=== PATIENT | female | born 1945 | race Caucasian/White ===

== ENCOUNTER → 2018-01-07 14:28 | Outpatient (CLI) | payer MEDICARE, OTHER, SELFPAY ==
[2018-01-07 16:16] LABS: Albumin, Serum 3.6 g/dL (3.2-5.0); BUN 42 mg/dL (7-18); BUN/Creat Ratio 21.4 RATIO (10-20); Calcium,Total 9.7 mg/dL (8.5-10.1); Chloride 104 mmol/L (98-107); Creatinine, Serum 1.96 mg/dL (0.55-1.02); EST Glomerular Filtration Rate 27 mL/min (>60); Est Glom Filt Rate - Afr Amer 32 mL/min (>60); Glucose 94 mg/dL (74-106); Phosphorus 3.4 mg/dL (2.5-4.9); Potassium 3.5 mmol/L (3.5-5.1); Sodium Level 141 mmol/L (136-145)
== END ==
PROVIDERS: Family Provider Family Medicine; PCP Family Medicine; Visit Provider Internal Medicine Nephrology
DX: R79.89 Other specified abnormal findings of blood chemistry (principal); N18.3 Chronic kidney disease, stage 3 (moderate)
CPT/HCPCS: 36415; 80069

== ENCOUNTER → 2018-03-04 11:37 | Outpatient (CLI) | payer MEDICARE, OTHER, SELFPAY ==
[2018-03-04 13:24] LABS: Albumin, Serum 3.2 g/dL (3.2-5.0); BUN 36 mg/dL (7-18); BUN/Creat Ratio 17.1 RATIO (10-20); Calcium,Total 9.4 mg/dL (8.5-10.1); Chloride 110 mmol/L (98-107); EST Glomerular Filtration Rate 25 mL/min (>60); Est Glom Filt Rate - Afr Amer 30 mL/min (>60); Glucose 93 mg/dL (74-106); Phosphorus 3.7 mg/dL (2.5-4.9); Potassium 4.3 mmol/L (3.5-5.1); Sodium Level 146 mmol/L (136-145)
== END ==
PROVIDERS: Family Provider Family Medicine; PCP Family Medicine; Visit Provider Internal Medicine Nephrology
DX: N18.3 Chronic kidney disease, stage 3 (moderate) (principal)
CPT/HCPCS: 36415; 80069

== ENCOUNTER → 2018-06-10 14:44 | Outpatient (CLI) | payer MEDICARE, OTHER, SELFPAY ==
[2018-06-10 16:43] LABS: Absolute Lymphocyte Count 1.96 X10^3/ul (0.83-4.51); Absolute Neutrophil Count 3.3 X10^3/uL (2.0-7.7); Basophil# 0.04 X10^3/uL; Basophil% 0.7 % (0-1); Eosinophil# 0.23 X10^3/uL; Eosinophils% 3.8 % (0-5); Hematocrit 40.8 % (37-47); Hemoglobin 12.8 g/dl (12.0-15.0); Lymphocyte # 1.96 X10^3/ul (4.0); Lymphocyte % 32.6 % (19-41); Mean Corp Hgb Conc 31.4 g/gl (32-36); Mean Corpuscular Hgb 30.2 pg (27.0-32.0); Mean Corpuscular Volume 96.2 fL (81-99); Mean Platelet Vol. 11.2 fl (6.2-12.0); Monocyte# 0.45 X10^3/uL; Monocyte% 7.5 % (0-10); Neutrophil # 3.32 X10^3/uL (2.7-7.7); Neutrophil % 55.1 % (47-70); Platelet Count 193 K/mm3 (150-450); RBC Distribution Width CV 14.6 % (11.6-14.6); RBC Distribution Width SD 49.1 fl (35.1-43.9); Red Blood Count 4.24 M/mm3 (4.2-5.4)
[2018-06-10 16:44] LABS: POSITIVE COUNT NO; POSITIVE DIFFERENTIAL NO; POSITIVE MORPHOLOGY NO
[2018-06-10 16:59] LABS: ALB/GLOB Ratio 0.8 RATIO (0.9-2.4); AST(SGOT) 17 U/L (15-37); Alanine Aminotransfer ALT/SGPT 25 U/L (13-56); Albumin, Serum 3.3 g/dL (3.2-5.0); Alkaline Phosphatase 80 U/L (45-117); Anion Gap 10 (5-15); BUN 35 mg/dL (7-18); Bilirubin, Direct 0.11 mg/dL (0.00-0.30); Calcium,Total 9.4 mg/dL (8.5-10.1); Chloride 105 mmol/L (98-107); Creatinine, Serum 2.33 mg/dL (0.55-1.02); EST Glomerular Filtration Rate 22 mL/min (>60); Est Glom Filt Rate - Afr Amer 26 mL/min (>60); Globulin 4.2 g/dL (2.2-4.2); Glucose 97 mg/dL (74-106); Potassium 4.4 mmol/L (3.5-5.1); Protein, Total 7.5 g/dL (6.4-8.2); Sodium Level 141 mmol/L (136-145); Thyroid Stim Hormone (TSH) 6.93 uIU/mL (0.358-3.74)
== END ==
PROVIDERS: Family Provider Family Medicine; PCP Family Medicine; Visit Provider Internal Medicine Nephrology
DX: E03.4 Atrophy of thyroid (acquired) (principal)
CPT/HCPCS: 36415; 80053; 82248; 84443; 85025

== ENCOUNTER → 2018-09-16 11:41 | Outpatient (CLI) | payer MEDICARE, OTHER, SELFPAY ==
[2018-09-16 14:15] LABS: Albumin, Serum 3.3 g/dL (3.2-5.0); BUN 38 mg/dL (7-18); BUN/Creat Ratio 16.9 RATIO (10-20); Chloride 106 mmol/L (98-107); Creatinine, Serum 2.25 mg/dL (0.55-1.02); EST Glomerular Filtration Rate 23 mL/min (>60); Est Glom Filt Rate - Afr Amer 28 mL/min (>60); Glucose 95 mg/dL (74-106); Phosphorus 4.7 mg/dL (2.5-4.9); Potassium 3.7 mmol/L (3.5-5.1); Sodium Level 143 mmol/L (136-145)
== END ==
PROVIDERS: Family Provider Family Medicine; PCP Family Medicine; Visit Provider Internal Medicine Nephrology
DX: N18.3 Chronic kidney disease, stage 3 (moderate) (principal)
CPT/HCPCS: 36415; 80069

== ENCOUNTER → 2018-11-12 14:28 | Outpatient (CLI) | payer MEDICARE, OTHER, SELFPAY ==
[2018-11-12 17:28] LABS: Albumin, Serum 3.4 g/dL (3.2-5.0); BUN 29 mg/dL (7-18); BUN/Creat Ratio 13.4 RATIO (10-20); Calcium,Total 9.4 mg/dL (8.5-10.1); Chloride 103 mmol/L (98-107); Creatinine, Serum 2.17 mg/dL (0.55-1.02); EST Glomerular Filtration Rate 24 mL/min (>60); Est Glom Filt Rate - Afr Amer 29 mL/min (>60); Glucose 101 mg/dL (74-106); Phosphorus 3.9 mg/dL (2.5-4.9); Sodium Level 138 mmol/L (136-145)
== END ==
PROVIDERS: Family Provider Family Medicine; PCP Family Medicine; Visit Provider Internal Medicine Nephrology
DX: N18.3 Chronic kidney disease, stage 3 (moderate) (principal)
CPT/HCPCS: 36415; 80069

== ENCOUNTER → 2019-02-08 14:36 | Outpatient (CLI) | payer MEDICARE, OTHER, SELFPAY ==
[2019-02-08 16:17] LABS: Albumin, Serum 3.3 g/dL (3.2-5.0); BUN 29 mg/dL (7-18); BUN/Creat Ratio 12.6 RATIO (10-20); Calcium,Total 9.4 mg/dL (8.5-10.1); Chloride 105 mmol/L (98-107); EST Glomerular Filtration Rate 22 mL/min (>60); Est Glom Filt Rate - Afr Amer 27 mL/min (>60); Glucose 91 mg/dL (74-106); Phosphorus 3.5 mg/dL (2.5-4.9); Potassium 4.2 mmol/L (3.5-5.1); Sodium Level 139 mmol/L (136-145); Thyroid Stim Hormone (TSH) 0.38 uIU/mL (0.358-3.74)
== END ==
PROVIDERS: Family Provider Family Medicine; PCP Family Medicine; Visit Provider Internal Medicine Nephrology
DX: N18.3 Chronic kidney disease, stage 3 (moderate) (principal); E03.9 Hypothyroidism, unspecified
CPT/HCPCS: 36415; 80069; 84443

== ENCOUNTER 2019-08-07 11:30 | Inpatient (IN) | payer MEDICARE, OTHER, SELFPAY ==
[2019-08-07 11:31] VITALS: BP 107/43; PULSE 67; RESP 18; TEMP 36.4; O2SAT 98; BMI 32.3
--- NOTE | 2019-08-07 11:48 | EKG12_ITS ---
Test Reason : Blood Pressure : / mmHG Vent. Rate : 059 BPM Atrial Rate : 059 BPM P-R Int : 154 ms QRS Dur : 078 ms QT Int : 454 ms P-R-T Axes : 003 043 114 degrees QTc Int : [address] & T wave abnormality, consider lateral ischemia Abnormal ECG Confirmed by MIKE LING, SHIKHA ([id number]), communications editor VOLODYMYR VIZCARRA ([id number]) on 08/09/2019 1:48:01 PM Referred By: Soila Torres Confirmed By:SHIKHA MCKEON MD
--- NOTE | 2019-08-07 11:48 | CT_ITS ---
STUDY: CT BRAIN WITHOUT CONTRAST REASON FOR EXAM: Female, 74 years old. Weakness. RADIATION DOSAGE (If Supplied By Facility): CTDIvol = ( 44.99 ) mGy, DLP = ( 1490.98 ) mGycm TECHNIQUE: Transaxial CT imaging of the brain was performed without administration of intravenous contrast material. Individualized dose optimization techniques were used for this CT. COMPARISON: 10/14/2016. FINDINGS: Normal soft tissue structures. Normal calvarium. There is moderate cerebral atrophy with widening of the extra-axial spaces and ventricular dilatation worse than the previous examination. There are areas of decreased attenuation within the white matter tracts of the supratentorial brain, consistent with microvascular disease changes. Normal basal ganglia and thalami. Normal brainstem. Normal cerebellum. There is no intracranial hemorrhage. There are no findings of an acute ischemic infarction. Normal visualized paranasal sinuses. CT/Brain/Head without Contrast IMPRESSION: Chronic involutional changes of the brain. No acute intracranial process. Electronically Signed: Andrea Shea MD at 13:39 EST Tel , Service support ,
--- NOTE | 2019-08-07 11:49 | RAD_ITS ---
STUDY: X-RAY CHEST REASON FOR EXAM: Female, 74 years old. Weakness and confusion. TECHNIQUE: Single AP portable view of the chest. COMPARISON: 10/14/2016. FINDINGS: There are hypoventilatory changes. No focal infiltrate is seen. There is no demonstrated pleural abnormality. There is borderline cardiomegaly. Normal mediastinum and guerrero. Normal visualized pulmonary arteries. There is atherosclerotic tortuosity of the aortic arch and descending thoracic aorta. The bony structures are unchanged. There is no demonstrated abnormality of the visualized soft tissue structures of the upper abdomen. RAD/Chest 1 View (Portable) IMPRESSION: Hypoventilatory changes. No active pulmonary disease. Electronically Signed: Andrea Shea MD at 14:17 EST Tel , Service support ,
--- NOTE | 2019-08-07 11:50 | RAD_ITS ---
STUDY: X-RAY - RIGHT FEMUR REASON FOR STUDY: Female, 74 years old. Weakness and bilateral femoral pain. TECHNIQUE: AP and lateral view(s) of the femur. COMPARISON: None. FINDINGS: Normal visualized femur. Normal visualized soft tissue structure. Mild narrowing of hip joint. There are degenerative changes in the knee. RAD/Femur Min 2 Views IMPRESSION: No demonstrated acute osseous injury. Electronically Signed: Andrea Shea MD at 14:20 EST Tel , Service support ,
--- NOTE | 2019-08-07 11:50 | RAD_ITS ---
STUDY: X-RAY - LEFT FEMUR REASON FOR STUDY: Female, 74 years old. Weakness and bilateral femoral pain. TECHNIQUE: AP and lateral view(s) of the femur. COMPARISON: None. FINDINGS: The patient is status post hip pinning with long intramedullary aleksey extending to the distal femur. There is no demonstrated acute fracture. Normal visualized soft tissue structure. There is degenerative arthrosis of the left knee. RAD/Femur Min 2 Views IMPRESSION: Postoperative changes. No demonstrated acute osseous injury. Electronically Signed: Andrea Shea MD at 14:19 EST Tel , Service support ,
[2019-08-07] MEDS: fentaNYL 100 MCG/2 ML Ampul 50 MCG IV (12:04)
[2019-08-07 12:28] LABS: Absolute Lymphocyte Count 1.23 X10^3/uL (0.83-4.51); Absolute Neutrophil Count 6.8 X10^3/uL (2.0-7.7); Basophil# 0.03 X10^3/uL; Basophil% 0.3 % (0-1); Eosinophil# 0.03 X10^3/uL; Eosinophils% 0.3 % (0-5); Hematocrit 34.8 % (37-47); Hemoglobin 11.1 g/dL (12.0-15.0); Lymphocyte # 1.23 X10^3/ul (4.0); Mean Corp Hgb Conc 31.9 g/dL (32-36); Mean Corpuscular Hgb 30.5 pg (27.0-32.0); Mean Corpuscular Volume 95.6 fL (81-99); Mean Platelet Vol. 10.8 fl (6.2-12.0); Monocyte# 0.64 X10^3/uL; Monocyte% 7.3 % (0-10); NRBC Flagged by Analyzer 0 % (0-5); Neutrophil # 6.82 X10^3/uL (2.7-7.7); Neutrophil % 77.9 % (47-70); Platelet Count 164 K/mm3 (150-450); RBC Distribution Width CV 13.4 % (11.6-14.6); RBC Distribution Width SD 46.8 fl (35.1-43.9); Red Blood Count 3.64 M/mm3 (4.2-5.4); White Blood Count 8.8 K/mm3 (4.4-11.0)
[2019-08-07 12:44] LABS: ALB/GLOB Ratio 0.8 RATIO (0.9-2.4); AST(SGOT) 17 U/L (15-37); Alanine Aminotransfer ALT/SGPT 25 U/L (13-56); Albumin, Serum 3.1 g/dL (3.2-5.0); Alkaline Phosphatase 79 U/L (45-117); Anion Gap 6 (5-15); BUN 24 mg/dL (7-18); BUN/Creat Ratio 16.4 RATIO (10-20); CPK Total, Creatine Kinase 18 U/L (26-192); Chloride 115 mmol/L (98-107); Creatinine, Serum 1.46 mg/dL (0.55-1.02); EST Glomerular Filtration Rate 37 mL/min (>60); Est Glom Filt Rate - Afr Amer 45 mL/min (>60); Estimated Creatinine Clearance 28.39 ml/min; Glucose 109 mg/dL (74-106); Potassium 3.8 mmol/L (3.5-5.1); Protein, Total 7.1 g/dL (6.4-8.2); Sodium Level 144 mmol/L (136-145)
[2019-08-07 12:57] LABS: Mucous, Urine 0 SEEN /hpf (<or=2+); Squamous Epithelial Cells - UA 0 SEEN /hpf (5-10)
[2019-08-07 13:01] LABS: Glucose, Dipstick Normal (Normal); Ketone-Dipstick 50 mg/dl (Negative); Leukocyte Esterase-Dipstick 500 /ul (Negative); Nitrite-Dipstick Positive (Negative); Occult Blood-Urine 150 /ul (Negative); Protein-Dipstick 30 mg/dl (Negative); Urine Bilirubin Dipstick Negative (Negative); Urine Urobilinogen Normal (Normal)
[2019-08-07 13:05] LABS: Color, Urine Yellow (Yellow); Urine Clarity Cloudy (Clear)
[2019-08-07 13:07] LABS: Bacteria 4+ /hpf (None Seen); Red Blood Cells-Urine 0-5 SEEN /hpf (0-5); White Blood Cells 10-25 SEEN /hpf (0-5)
[2019-08-07] MEDS: Ceftriaxone 1 GM/50 ML BAG IV (14:29)
[2019-08-07 14:31] VITALS: BP 113/81; PULSE 66; RESP 14; TEMP 36.8; O2SAT 98
--- NOTE | 2019-08-07 14:32 | NURSING ---
Sent text at 1423 to Charge Ed that it is okay for patient to come up to floor.
--- NOTE | 2019-08-07 14:33 | HP.PCM_ITS ---
History of Present Illness Date of Admission: 08/07/19 Chief Complaint: Generalized weakness and malaise. The patient is a 74 year old F with a past medical history as listed which includes hypertension and dementia and hypothyroidism. She was admitted through the ED on 08/07/2019 with a complaint of generalized malaise. History was mainly taken from the as patient is confused from dementia. According to the , patient was just weaker than usual generally and also would not allow him to change her as she was in pain wherever he touched her. She had no assisted fever or chills but he stated that she had not been eating and drinking well for the past few days. She had had no vomiting or diarrhea. She was incontinent of urine and she had not complained of any burning sensation with urine. On admission in the ED, vitals were significant for blood pressure of 107/43 with temperature of 97.5 Fahrenheit and pulse rate of 67 with respiratory rate of 18. He was saturating at 98% on room air. CBC showed no leukocytosis with WBC of 8.8 and hemoglobin of 11.1. Platelets were 164. Chemistry was significant for creatinine of 1.46, with a baseline of around 1.7. UA was positive for UTI with 4+ bacteria. She has been admitted to be managed for UTI. [] Past Medical History Past Medical History (Chronic Problems): Chronic Problems Dementia (Chronic) Hypothyroid (Chronic) Hypertension (Chronic) Allergies Penicillins [PCN] Allergy (Verified 08/07/19 11:39) Unknown Home Medications: Ambulatory Orders Medication Instructions Recorded Amlodipine Besylate [Norvasc] 1 tab PO DAILY 10/14/16 Donepezil HCl [Aricept] 10 mg PO QHS 10/14/16 Levothyroxine [Synthroid] 100 mcg PO DAILY 10/14/16 Vit A/Vit C/Vit E/Zinc/Copper 1 each PO BID 10/14/16 [Preservision Areds Softgel] Aspirin [Aspirin, Baby] 81 mg PO DAILY@0800 08/07/19 Carvedilol [Coreg] 12.5 mg PO BID 08/07/19 [place] History: No pertinent CORN GROWER history Lives: Spouse/ Significant Other Smoking Status: Never smoker Alcohol: None Drugs: None - *Family History Maternal History Items: No pertinent history Review of Systems Constitutional: Reports: Anorexia, Malaise, Weakness, Fatigue. Denies: Chills, Fever Eyes: Denies: Blurred vision HEENT: Denies: Head Aches, Sinus Congestion, Sinus Drainage Cardiovascular: Denies: Chest Pain, Palpitations Respiratory: Denies: Cough, Shortness of Breath, Shortness of breath at rest, Sputum production Gastrointestinal: Denies: Abdominal Pain, Nausea, Vomiting Genitourinary: Reports: Incontinence. Denies: Dysuria Musculoskeletal: Denies: Joint Pain, Joint Tenderness Skin: Denies: Rash, Wounds Neurological: Denies: Numbness, Tingling, Focal weakness Psychiatric: Denies: Anxiety, Depression, Homicidal Ideations, Suicidal Ideations Hematologic/ Lymphatic: Denies: Easy Bruising, Easy Bleeding VTE Information - Inpt Only VTE Present on Admission: No VTE Pharm Prophylaxis ordered?: Yes - Physical Exam Vitals/I&O's: Vital Signs Temp Pulse Resp BP Pulse Ox 98.2 F 66 14 113/81 H 98 08/07/19 14:31 08/07/19 14:31 08/07/19 14:31 08/07/19 14:31 08/07/19 14:31 Oxygen Delivery Method Room Air Weight: 182 lb 8.684 oz Body Mass Index (BMI) 32.3 Intake and Output for Last 24 Hours 08/05/19 08/06/19 08/07/19 23:59 23:59 23:59 Intake Total 500 / 500 Balance 500 / 500 General: Alert, Cooperative, No apparent distress, Confused, Lethargic HEENT: Atraumatic, PERRLA, EOMI, Normocephalic Oral: Dry Mucosa Neck: Supple, No JVD, Negative Carotid Bruits Lungs: Clear to auscultation, Normal air movement, No rhonchi, No wheeze, No rales Cardiovascular: Regular rate, Regular Rhythm, Normal S1, Normal S2, No murmurs Abdomen: Bowel Sounds Present, Soft, Non Tender, Non-Distended, No Hepato- splenomegaly Extremities: No clubbing, No cyanosis, No edema, Capillary Refill Less than 3 Seconds Skin: No rashes, No breakdown Musculoskeletal: No Tenderness to Palpation of Joints or Extremities Lymphatic: No Cervical, Supraclavicular, or Inguinal Adenopathy Neurological: Cranial nerves II-XII grossly intact, Neuro grossly intact Psych/Mental Status: Flat Affect Laboratory Results 08/07/19 12:15: WBC 8.8, RBC 3.64 L, Hgb 11.1 L, Hct 34.8 L, MCV 95.6, MCH 30.5, MCHC 31.9 L, RDW Std Deviation 46.8 H, RDW Coeff of Barbara 13.4, Plt Count 164, MPV 10.8, Immature Gran % (Auto) 0.200, Neut % (Auto) 77.9 H, Lymph % (Auto) 14.0 L, [place] % (Auto) 7.3, Eos % (Auto) 0.3, Baso % (Auto) 0.3, Absolute Neuts (auto) 6.8, Absolute Lymphs (auto) 1.23, Nucleated RBC % 0 08/07/19 12:15: Sodium 144, Potassium 3.8, Chloride 115 H, Carbon Dioxide 23.0, Anion Gap 6, BUN 24 H, Creatinine 1.46 H, Estim Creat Clear Calc 28.39, Est GFR (MDRD) Af Amer 45 L, Est GFR (MDRD) Non-Af 37 L, BUN/Creatinine Ratio 16.4, Glucose 109 H, Calcium 9.0, Total Bilirubin 0.60, AST 17, ALT 25, Alkaline Phosphatase 79, Total Creatine Kinase 18 L, Troponin I < 0.015, Total Protein 7.1, Albumin 3.1 L, Globulin 4.0, Albumin/Globulin Ratio 0.8 L 08/07/19 12:15: Lactic Acid 1.0 08/07/19 12:15: Total Creatine Kinase Cancelled 08/07/19 12:50: Urine Color Yellow, Urine Clarity Cloudy, Urine pH 5.0, Ur Specific [place] 1.020, Urine Protein 30 H, Urine Glucose (UA) Normal, Urine Ketones 50 H, Urine Occult Blood 150 H, Urine Nitrite Positive H, Urine Bilirub in Negative, Urine Urobilinogen Normal, Ur Leukocyte Esterase 500 H, Urine RBC 0-5 SEEN, Urine WBC 10-25 SEEN, Ur Squamous Epith Cells 0 SEEN, Urine Bacteria 4+, Urine Mucus 0 SEEN Diagnostic Data Brain CT 08/07/19 11:48 IMPRESSION: Chronic involutional changes of the brain. No acute intracranial process. Electronically Signed: Andrea Shea MD at 13:39 EST Tel , Service support , Chest X-Ray 08/07/19 11:49 IMPRESSION: Hypoventilatory changes. No active pulmonary disease. Electronically Signed: Andrea Shea MD at 14:17 EST Tel , Service support , Femur X-Ray 08/07/19 11:50 IMPRESSION: No demonstrated acute osseous injury. Electronically Signed: Andrea Shea MD at 14:20 EST Tel , Service support , Assessment/Plan All Active Problems CKD (chronic kidney disease) stage 3, GFR 30-59 ml/min (Acute) Anemia (Acute) Intertrochanteric fracture of left hip (Acute) 74 y/o female admitted with a complaint of general weakness and fatigue, as well as anorexia 1. UTI * UA had 4+ bacteria, with 10-25 wbc and positive nitrites * admit to [facility] * CBC showed no leucocytosis * hydrate gently with IVF NS * get urine and blood cultures * given IV ceftriaxone in the ED; however, she has a listed allergy to penicillins- neither she nor can tell what happens to her when she takes penicillins * will give IV ciprofloxacin * 2. Debililty due to UTI and dementia * And is very weak. is her primary caregiver. * PT OT consult to assess if she would benefit from placement. * CT of the brain showed only chronic involutional changes and there was no acute intracranial process. * X-ray of the femur was negative for any fractures bilaterally. * Fall precautions. * 3. CKD stage III: Creatinine is 1.46 with a baseline of around 1.8. Will monitor. 4.Hypertension: On amlodipine and carvedilol. BP well controlled 5. Hypothyroidism: On Synthroid. Will check TSH. 6. Dementia: On donepezil DVT prophylaxis: lovenox, renally dosed CODE STATUS: Full code * Patient's counseled extensively about different types of CODE STATUS including full code, DNR CCA and DNR CCA. elects for patient to be full code. * Total [id number] time 17 minutes. Code Visit Inpatient E&M: 79760 Init Hosp L3 Procedures: 95883 Advncd Care Plan 30 Min
--- NOTE | 2019-08-07 14:59 | ED.VISSUMM ---
- ER Visit Summary Date of Service: 08/07/19 Chief Complaint: Weakness History of Present Illness: The patient is a [address] Angulo. The patient has a history of dementia and is a poor informant. All history is through her . He reports that the patient has been weak over the course the past 3 weeks. Typically she walks around with a walker. He reports that she is gotten weaker and he was using a wheelchair and helping her transfer. She has not walked for the past week. Reports that since yesterday he was not even able to get her out of bed because of her weakness. He reports patient was nauseous and vomited 3 weeks ago, but has not vomited since then. He reports that she has not fallen. He denies fever. Patient denies any chest pain, abdominal pain, dysuria, headache, or other complaints. Physical Examination: Vitals: Stable. Afebrile. General: Well-nourished and well-developed. Head: Normocephalic atraumatic. Neck: Supple, no lymphadenopathy. No JVD. Nontender. Cardiovascular: Regular rate and rhythm. 3 out of 6 systolic murmur. Respiratory: No respiratory distress. Clear to auscultation bilaterally. Abdominal: Soft, nontender, nondistended, normal bowel sounds. No guarding, rebound, or peritoneal signs. Back: Nontender. Extremities: Moderate tenderness palpation of the distal thigh bilaterally. There is no soft tissue swelling or contusion. Good range of motion with minimal pain, no edema. Skin: Normal color, no rash. Neurologic: Alert and oriented ?1. Cranial nerves II through XII are intact. Normal sensation. 4 out of 5 strength throughout Psych: Normal affect. Test Results: EKG is sinus bradycardia at a rate of [address] changes. She does have T wave inversions laterally. Troponin is negative. UA shows UTI. Lactic acid is 1.0. CPK is 18. LFTs are marked for an albumin of 2.1. Chem-7 shows a chloride 115, BUN 24, creatinine 1.46, glucose 109. BC shows an H&H of 11.1 and 34.8. Clinical Impression(s) from Imaging Studies Brain CT 08/07/19 11:48 IMPRESSION: Chronic involutional changes of the brain. No acute intracranial process. Electronically Signed: Andrea Shea MD at 13:39 EST Tel , Service support , Chest X-Ray 08/07/19 11:49 IMPRESSION: Hypoventilatory changes. No active pulmonary disease. Electronically Signed: Andrea Shea MD at 14:17 EST Tel , Service support , Femur X-Ray 08/07/19 11:50 IMPRESSION: No demonstrated acute osseous injury. Electronically Signed: Andrea Shea MD at 14:20 EST Tel , Service support , Femur X-Ray 08/07/19 11:50 IMPRESSION: Postoperative changes. No demonstrated acute osseous injury. Electronically Signed: Andrea Shea MD at 14:19 EST Tel , Service support , Emergency Department Course and Treatment: Patient had an IV placed. She was given dose of fentanyl IV. She was given Rocephin IV. She is resting comfortably. Treatment Plan: Patient was discussed with Dr. Torres. She will be admitted the hospital for further relation and treatment. Disposition: Admitted in improved condition. Impression: 1. UTI. 2. Generalized weakness. This note was generated with [employer] dictation software. It may contain incorrect words, spelling, and punctuation that were not noted in review of the chart prior to signing ED Disposition - Plan for ED Patient: Disposition: Acute Care [facility]
[2019-08-07] MEDS: 0.9% Normal Saline 1,000 ML 125 ML IV (15:00)
[2019-08-07 15:04] VITALS: BMI 30.8; BMI 30.9
[2019-08-07] MEDS: Ciprofloxacin 400 MG/200 ML BAG 200 MG IV (16:42)
[2019-08-07] MEDS: Multivitamin (Healthy Eyes) Capsule 1 CAP PO (16:43)
[2019-08-07 17:08] LABS: Thyroid Stim Hormone (TSH) 0.17 uIU/mL (0.358-3.74)
[2019-08-07 21:00] VITALS: BP 130/52; PULSE 70; RESP 16; TEMP 36.9; O2SAT 96
[2019-08-07] MEDS: Nystatin Powder 15gm Bottle 1 APPLIC TOPICAL (22:10)
[2019-08-07] MEDS: Carvedilol 12.5 MG Tablet PO (22:10)
[2019-08-07] MEDS: Donepezil HCl 10 MG Tablet PO (22:10)
[2019-08-08] MEDS: 0.9% Normal Saline 1,000 ML 125 ML IV (01:55)
[2019-08-08 03:00] VITALS: BP 112/50; PULSE 64; RESP 16; TEMP 37; O2SAT 97
[2019-08-08] MEDS: Nystatin Powder 15gm Bottle 1 APPLIC TOPICAL ×3 (06:01→22:08)
[2019-08-08] MEDS: Enoxaparin 30 MG/0.3 ML Syringe SC (06:01)
[2019-08-08] MEDS: Levothyroxine 100 MCG Tablet PO (06:01)
[2019-08-08 06:44] LABS: Absolute Lymphocyte Count 1.63 X10^3/uL (0.83-4.51); Absolute Neutrophil Count 5.8 X10^3/uL (2.0-7.7); Basophil# 0.01 X10^3/uL; Basophil% 0.1 % (0-1); Eosinophil# 0.01 X10^3/uL; Eosinophils% 0.1 % (0-5); Hemoglobin 9.4 g/dL (12.0-15.0); Lymphocyte # 1.63 X10^3/ul (4.0); Lymphocyte % 19.9 % (19-41); Mean Corp Hgb Conc 31.3 g/dL (32-36); Mean Corpuscular Hgb 30.3 pg (27.0-32.0); Mean Corpuscular Volume 96.8 fL (81-99); Mean Platelet Vol. 10.9 fl (6.2-12.0); Monocyte# 0.67 X10^3/uL; Monocyte% 8.2 % (0-10); NRBC Flagged by Analyzer 0 % (0-5); Neutrophil # 5.82 X10^3/uL (2.7-7.7); Neutrophil % 71.1 % (47-70); Platelet Count 144 K/mm3 (150-450); RBC Distribution Width CV 13.8 % (11.6-14.6); RBC Distribution Width SD 48.7 fl (35.1-43.9); White Blood Count 8.2 K/mm3 (4.4-11.0)
[2019-08-08 06:59] LABS: Anion Gap 6 (5-15); BUN 22 mg/dL (7-18); BUN/Creat Ratio 16.2 RATIO (10-20); Calcium,Total 8.1 mg/dL (8.5-10.1); Chloride 117 mmol/L (98-107); Creatinine, Serum 1.36 mg/dL (0.55-1.02); EST Glomerular Filtration Rate 41 mL/min (>60); Est Glom Filt Rate - Afr Amer 49 mL/min (>60); Estimated Creatinine Clearance 30.48 ml/min; Glucose 81 mg/dL (74-106); Potassium 3.5 mmol/L (3.5-5.1); Sodium Level 146 mmol/L (136-145)
--- NOTE | 2019-08-08 07:42 | PN_ITS ---
Reason for Visit: UTI Subjective: Patient was seen and examined. She denied any new complaints. No acute events overnight. She is alert oriented to self only. Objective: Physical exam: General: Alert, Cooperative, No apparent distress, Confused HEENT: Atraumatic, PERRLA, EOMI, Normocephalic Oral: Moist Mucosa Neck: Supple, No JVD, Negative Carotid Bruits Lungs: Clear to auscultation, Normal air movement, No rhonchi, No wheeze, No rales Cardiovascular: Regular rate, Regular Rhythm, Normal S1, Normal S2, No murmurs Abdomen: Bowel Sounds Present, Soft, Non Tender, Non-Distended, No Hepato- splenomegaly Extremities: No clubbing, No cyanosis, No edema, Capillary Refill Less than 3 Seconds Skin: No rashes, No breakdown Musculoskeletal: No Tenderness to Palpation of Joints or Extremities Lymphatic: No Cervical, Supraclavicular, or Inguinal Adenopathy Neurological: Cranial nerves II-XII grossly intact, Neuro grossly intact Psych/Mental Status: Flat Affect Vitals/I&O's: Vital Signs Temp Pulse Resp BP Pulse Ox 98.6 F 64 16 112/50 L 97 08/08/19 03:00 08/08/19 03:00 08/08/19 03:00 08/08/19 03:00 08/08/19 03:00 Oxygen Delivery Method Room Air Weight: 79 kg Body Mass Index (BMI) 30.8 Intake and Output for Last 24 Hours 08/06/19 08/07/19 08/08/19 23:59 23:59 23:59 Intake Total 1900.00 / 1900.00 170 / 170 Balance 190.00 / 1900.00 170 / 170 Laboratory Results 08/07/19 12:15: WBC 8.8, RBC 3.64 L, Hgb 11.1 L, Hct 34.8 L, MCV 95.6, MCH 30.5, MCHC 31.9 L, RDW Std Deviation 46.8 H, RDW Coeff of Barbara 13.4, Plt Count 164, MPV 10.8, Immature Gran % (Auto) 0.200, Neut % (Auto) 77.9 H, Lymph % (Auto) 14.0 L, [place] % (Auto) 7.3, Eos % (Auto) 0.3, Baso % (Auto) 0.3, Absolute Neuts (auto) 6.8, Absolute Lymphs (auto) 1.23, Nucleated RBC % 0 08/07/19 12:15: Sodium 144, Potassium 3.8, Chloride 115 H, Carbon Dioxide 23.0, Anion Gap 6, BUN 24 H, Creatinine 1.46 H, Estim Creat Clear Calc 28.39, Est GFR (MDRD) Af Amer 45 L, Est GFR (MDRD) Non-Af 37 L, BUN/Creatinine Ratio 16.4, Glucose 109 H, Calcium 9.0, Total Bilirubin 0.60, AST 17, ALT 25, Alkaline Phosphatase 79, Total Creatine Kinase 18 L, Troponin I < 0.015, Total Protein 7.1, Albumin 3.1 L, Globulin 4.0, Albumin/Globulin Ratio 0.8 L 08/07/19 12:15: Lactic Acid 1.0 08/07/19 12:15: Total Creatine Kinase Cancelled 08/07/19 12:15: TSH 0.17 L 08/07/19 12:50: Urine Color Yellow, Urine Clarity Cloudy, Urine pH 5.0, Ur Specific [place] 1.020, Urine Protein 30 H, Urine Glucose (UA) Normal, Urine Ketones 50 H, Urine Occult Blood 150 H, Urine Nitrite Positive H, Urine Bilirubin Negative, Urine Urobilinogen Normal, Ur Leukocyte Esterase 500 H, Urine RBC 0-5 SEEN, Urine WBC 10-25 SEEN, Ur Squamous Epith Cells 0 SEEN, Urine Bacteria 4+, Urine Mucus 0 SEEN 08/08/19 05:50: WBC 8.2, RBC 3.10 L, Hgb 9.4 L, Hct 30.0 L, MCV 96.8, MCH 30.3, MCHC 31.3 L, RDW Std Deviation 48.7 H, RDW Coeff of [place] 13.8, Plt Count 144 L, MPV 10.9, Immature Gran % (Auto) 0.600, Neut % (Auto) 71.1 H, Lymph % (Auto) 19.9, [place] % (Auto) 8.2, Eos % (Auto) 0.1, Baso % (Auto) 0.1, Absolute Neuts (auto) 5.8, Absolute Lymphs (auto) 1.63, Nucleated RBC % 0 08/08/19 05:50: Sodium 146 H, Potassium 3.5, Chloride 117 H, Carbon Dioxide 23.0, Anion Gap 6, BUN 22 H, Creatinine 1.36 H, Estim Creat Clear Calc 30.48, Est GFR (MDRD) Af Amer 49 L, Est GFR (MDRD) Non-Af 41 L, BUN/Creatinine Ratio 16.2, Glucose 81, Calcium 8.1 L Current Medications Acetaminophen (Tylenol) 650 mg PO Q6H PRN PRN PRN Reason: Pain Score 1-3/Temp > 100.7 F Amlodipine Besylate (Norvasc) 5 mg PO DAILY [facility] Aspirin (Aspirin, Baby) 81 mg PO DAILY@0800 [facility] Calamine/Phenol (Calmoseptine Ointment) 1 applic TOPICAL TID PRN; Protocol PRN Reason: rectal excoriation Carvedilol (Coreg) 12.5 mg PO BID [facility] Last Admin: 08/07/19 22:10 Dose: 12.5 mg Documented by: Donepezil HCl (Aricept) 10 mg PO QHS [facility] Last Admin: 08/07/19 22:10 Dose: 10 mg Documented by: Enoxaparin Sodium (Lovenox) 30 mg SC DAILY@0600 [facility] Last Admin: 08/08/19 06:01 Dose: 30 mg Documented by: Glucagon () 1 mg IM .X1 PRN PRN Reason: Hypoglycemia Ciprofloxacin (Cipro) 400 mg in 200 mls @ 200 mls/hr IV Q24 [facility] Last Infusion: 08/07/19 18:46 Dose: Infused Documented by: Dextrose (Dextrose 10%-Water) 250 mls @ 999 mls/hr IV .Q16M PRN; Protocol PRN Reason: HYPOGLYCEMIA Levothyroxine Sodium (Synthroid) 100 mcg PO DAILY@0600 [facility] Last Admin: 08/08/19 06:01 Dose: 100 mcg Documented by: Multivitamins/Minerals (Healthy Eyes) 1 capsule PO BIDCM [facility] Last Admin: 08/07/19 16:43 Dose: 1 capsule Documented by: Nystatin (Mycostatin Powder) 1 applic TOPICAL TID [facility]; Protocol Last Admin: 08/08/19 06:01 Dose: 1 applicatio Documented by: Ondansetron HCl (Zofran) 4 mg IV Q8H PRN PRN PRN Reason: NAUSEA/VOMITING Sodium Chloride () 10 - 40 ml IV UD PRN PRN Reason: SALINE FLUSH Medical Necessity - Tobacco Use Smoking Status: Never smoker Assessment/Plan All Active Problems CKD (chronic kidney disease) stage 3, GFR 30-59 ml/min (Acute) Anemia (Acute) Intertrochanteric fracture of left hip (Acute) 74 y/o female with past medical history of hypertension, dementia, hypothyroidism, cared for by the at home who was admitted with progressive weakness and fatigue 1. Acute UTI, stable vitals, no leukocytosis Urine cultures are pending, Reported allergy to penicillin; On IV Cipro Will continue same pending urine cultures 2. Debility contribute to acute UTI on progressive dementia Has been reportedly unable to care for patient underwriting operations manager is consulted for discharge planning 3. CKD stage III, stable, continue to monitor creatinine. 4. Hypertension, controlled, continue on amlodipine and carvedilol 5. Hypothyroidism, continue on Synthroid TSH is 0.17, will check FT3/FT4 6. Dementia, continue on donepezil 7. DVT prophylaxis - Lovenox [place] 8. CODE STATUS: Full code Code Visit Inpatient E&M: 50365 Subs Hosp L2
[2019-08-08 09:00] VITALS: BP 119/56; PULSE 67; RESP 16; TEMP 37; O2SAT 96
[2019-08-08] MEDS: Multivitamin (Healthy Eyes) Capsule 1 CAP PO ×2 (09:01→18:00)
[2019-08-08] MEDS: Aspirin 81 MG TAB.CHEW PO (09:01)
[2019-08-08] MEDS: Carvedilol 12.5 MG Tablet PO ×2 (09:01→22:07)
[2019-08-08] MEDS: amLODIPine 5 MG Tablet PO (09:02)
[2019-08-08] MEDS: Ciprofloxacin 400 MG/200 ML BAG 200 MG IV (09:02)
[2019-08-08 10:18] LABS: Free T3 1.2 pg/mL (2.18-3.98)
[2019-08-08 15:00] VITALS: BP 101/70; PULSE 58; RESP 16; TEMP 36.6; O2SAT 97
[2019-08-08 22:00] VITALS: BP 134/51; PULSE 63; RESP 18; TEMP 36.9; O2SAT 96
[2019-08-08] MEDS: Donepezil HCl 10 MG Tablet PO (22:06)
[2019-08-08] MEDS: Menthol/Lanolin/Calamine/Znox 113 GM Tube 1 APPLIC TOPICAL (22:07)
[2019-08-09 04:40] VITALS: BP 119/76; PULSE 63; RESP 18; TEMP 36.4; O2SAT 99
[2019-08-09 06:02] LABS: Absolute Lymphocyte Count 1.93 X10^3/uL (0.83-4.51); Absolute Neutrophil Count 3.2 X10^3/uL (2.0-7.7); Basophil# 0.05 X10^3/uL; Basophil% 0.8 % (0-1); Eosinophil# 0.11 X10^3/uL; Eosinophils% 1.9 % (0-5); Hematocrit 32.3 % (37-47); Lymphocyte # 1.93 X10^3/ul (4.0); Lymphocyte % 32.5 % (19-41); Mean Corpuscular Hgb 30.2 pg (27.0-32.0); Mean Corpuscular Volume 97.6 fL (81-99); Mean Platelet Vol. 11.1 fl (6.2-12.0); Monocyte# 0.58 X10^3/uL; Monocyte% 9.8 % (0-10); NRBC Flagged by Analyzer 0 % (0-5); Neutrophil # 3.24 X10^3/uL (2.7-7.7); Neutrophil % 54.5 % (47-70); Platelet Count 142 K/mm3 (150-450); RBC Distribution Width CV 13.5 % (11.6-14.6); RBC Distribution Width SD 48.1 fl (35.1-43.9); Red Blood Count 3.31 M/mm3 (4.2-5.4); White Blood Count 5.9 K/mm3 (4.4-11.0)
[2019-08-09] MEDS: Nystatin Powder 15gm Bottle 1 APPLIC TOPICAL ×3 (06:03→21:04)
[2019-08-09] MEDS: Enoxaparin 30 MG/0.3 ML Syringe SC (06:03)
[2019-08-09] MEDS: Levothyroxine 100 MCG Tablet PO (06:03)
[2019-08-09 06:16] LABS: ALB/GLOB Ratio 0.7 RATIO (0.9-2.4); AST(SGOT) 18 U/L (15-37); Alanine Aminotransfer ALT/SGPT 23 U/L (13-56); Albumin, Serum 2.6 g/dL (3.2-5.0); Alkaline Phosphatase 67 U/L (45-117); Anion Gap 7 (5-15); BUN 21 mg/dL (7-18); BUN/Creat Ratio 14.5 RATIO (10-20); Calcium,Total 8.6 mg/dL (8.5-10.1); Chloride 114 mmol/L (98-107); Creatinine, Serum 1.45 mg/dL (0.55-1.02); EST Glomerular Filtration Rate 38 mL/min (>60); Est Glom Filt Rate - Afr Amer 46 mL/min (>60); Estimated Creatinine Clearance 28.58 ml/min; Globulin 3.8 g/dL (2.2-4.2); Glucose 83 mg/dL (74-106); Potassium 3.4 mmol/L (3.5-5.1); Protein, Total 6.4 g/dL (6.4-8.2); Sodium Level 144 mmol/L (136-145)
[2019-08-09 10:21] VITALS: BP 117/89; PULSE 68; RESP 16; TEMP 36.7; O2SAT 100
[2019-08-09 10:24] VITALS: PULSE 80
--- NOTE | 2019-08-09 10:27 | PN_ITS ---
Reason for Visit: Follow-up on UTI. Subjective: Patient was seen and examined. No acute events overnight. Denies any new complaints. Review of systems is negative. Objective: Physical exam: General: Alert, Cooperative, No apparent distress, Confused, alert oriented to self only HEENT: Atraumatic, PERRLA, EOMI, Normocephalic Oral: Moist Mucosa Neck: Supple, No JVD, Negative Carotid Bruits Lungs: Clear to auscultation, Normal air movement, No rhonchi, No wheeze, No rales Cardiovascular: Regular rate, Regular Rhythm, Normal S1, Normal S2, No murmurs Abdomen: Bowel Sounds Present, Soft, Non Tender, Non-Distended, No Hepato- splenomegaly Extremities: No clubbing, No cyanosis, No edema, Capillary Refill Less than 3 Seconds Skin: No rashes, No breakdown Musculoskeletal: No Tenderness to Palpation of Joints or Extremities Lymphatic: No Cervical, Supraclavicular, or Inguinal Adenopathy Neurological: Cranial nerves II-XII grossly intact, Neuro grossly intact Psych/Mental Status: Flat Affect Vitals/I&O's: Vital Signs Temp Pulse Resp BP Pulse Ox 98.1 F 68 16 117/89 H 100 08/09/19 10:21 08/09/19 10:21 08/09/19 10:21 08/09/19 10:21 08/09/19 10:21 Oxygen Delivery Method Room Air Weight: 79 kg Body Mass Index (BMI) 30.8 Intake and Output for Last 24 Hours 08/07/19 08/08/19 08/09/19 23:59 23:59 23:59 Intake Total 1900.00 / 1900.00 1370 / 1470 200 / 200 Balance 1900.00 / 1900.00 1370 / 1470 200 / 200 Microbiology Past 72 Hours 08/07/19 13:35 Urine Catheter - Catheter Urine Culture - Preliminary Culture exhibits no growth. Laboratory Results 08/09/19 05:30: WBC 5.9, RBC 3.31 L, Hgb 10.0 L, Hct 32.3 L, MCV 97.6, MCH 30.2, MCHC 31.0 L, RDW Std Deviation 48.1 H, RDW Coeff of Barbara 13.5, Plt Count 142 L, MPV 11.1, Immature Gran % (Auto) 0.500, Neut % (Auto) 54.5, Lymph % (Auto) 32.5, [place] % (Auto) 9.8, Eos % (Auto) 1.9, Baso % (Auto) 0.8, Absolute Neuts (auto) 3.2, Absolute Lymphs (auto) 1.93, Nucleated RBC % 0 08/09/19 05:30: Sodium 144, Potassium 3.4 L, Chloride 114 H, Carbon Dioxide 23.0, Anion Gap 7, BUN 21 H, Creatinine 1.45 H, Estim Creat Clear Calc 28.58, Est GFR (MDRD) Af Amer 46 L, Est GFR (MDRD) Non-Af 38 L, BUN/Creatinine Ratio 14.5, Glucose 83, Calcium 8.6, Total Bilirubin 0.30, AST 18, ALT 23, Alkaline Phosphatase 67, Total Protein 6.4, Albumin 2.6 L, Globulin 3.8, Albumin/Globulin Ratio 0.7 L Current Medications Acetaminophen (Tylenol) 650 mg PO Q6H PRN PRN PRN Reason: Pain Score 1-3/Temp > 100.7 F Amlodipine Besylate (Norvasc) 5 mg PO DAILY [facility] Last Admin: 08/08/19 09:02 Dose: 5 mg Documented by: Aspirin (Aspirin, Baby) 81 mg PO DAILY@0800 [facility] Last Admin: 08/08/19 09:01 Dose: 81 mg Documented by: Calamine/Phenol (Calmoseptine Ointment) 1 applic TOPICAL TID PRN; Protocol PRN Reason: rectal excoriation Last Admin: 08/08/19 22:07 Dose: 1 applicatio Documented by: Carvedilol (Coreg) 12.5 mg PO BID [facility] Last Admin: 08/08/19 22:07 Dose: 12.5 mg Documented by: Donepezil HCl (Aricept) 10 mg PO QHS [facility] Last Admin: 08/08/19 22:06 Dose: 10 mg Documented by: Enoxaparin Sodium (Lovenox) 30 mg SC DAILY@0600 [facility] Last Admin: 08/09/19 06:03 Dose: 30 mg Documented by: Glucagon () 1 mg IM .X1 PRN PRN Reason: Hypoglycemia Ciprofloxacin (Cipro) 400 mg in 200 mls @ 200 mls/hr IV Q24 [facility] Last Infusion: 12/22/19 10:02 Dose: Infused Documented by: Dextrose (Dextrose 10%-Water) 250 mls @ 999 mls/hr IV .Q16M PRN; Protocol PRN Reason: HYPOGLYCEMIA Levothyroxine Sodium (Synthroid) 100 mcg PO DAILY@0600 [facility] Last Admin: 08/09/19 06:03 Dose: 100 mcg Documented by: Multivitamins/Minerals (Healthy Eyes) 1 capsule PO BIDCM [facility] Last Admin: 08/08/19 18:00 Dose: 1 capsule Documented by: Nystatin (Mycostatin Powder) 1 applic TOPICAL TID [facility]; Protocol Last Admin: 08/09/19 06:03 Dose: 1 applicatio Documented by: Ondansetron HCl (Zofran) 4 mg IV Q8H PRN PRN PRN Reason: NAUSEA/VOMITING Sodium Chloride () 10 - 40 ml IV UD PRN PRN Reason: SALINE FLUSH STROKE Vital Signs/Narrative: Vital Signs Temp Pulse Resp BP Pulse Ox 08/09/19 10:21 98.1 F 68 16 117/89 H 100 Medical Necessity - Tobacco Use Smoking Status: Never smoker Assessment/Plan All Active Problems CKD (chronic kidney disease) stage 3, GFR 30-59 ml/min (Acute) Anemia (Acute) Intertrochanteric fracture of left hip (Acute) 74 y/o female with past medical history of hypertension, dementia, hypothyroidism, cared for by the at home who was admitted with progressive weakness and fatigue 1. Acute UTI, stable vitals, no leukocytosis Urine cultures showed no growth Reported allergy to penicillin; On IV Cipro(day 3) Will aim to complete 5 days of antibiotics for acute uncomplicated UTI 2. Debility contribute to acute UTI on progressive dementia reportedly unable to care for patient Discharge planning ongoing 3. Hypokalemia, K 3.4, replaced, recheck in am 4. CKD stage III, stable, continue to monitor creatinine. 5. Hypertension, controlled, continue on amlodipine and carvedilol 6. Hypothyroidism, continue on Synthroid TSH is 0.17, FT4 elevated Will decrease Synthroid dose to 75mcg daily, will need repeat TSH in 6-8 weeks 7. Dementia, continue on donepezil 8. DVT prophylaxis - Lovenox SC 9. CODE STATUS: Full code Code Visit Inpatient E&M: 84199 Subs Hosp L2
--- NOTE | 2019-08-09 10:35 | CASEMGMT ---
Patient has dementia, called placed to to complete RN CM assessment. RN CM introduced self and role at [facility]. willing to participate in assessment and is able to answer all questions appropriately. Care providers, pharmacy, and demographics verified. wishes for patient to discharge home with possible HHC. states he has no further needs or concerns at this time. CM to follow for discharge planning needs that may arise. 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 Patient is 1 assist for ADLs. Transportation: DME/HHC: Patient has shower chair, raised toilet, cane, walker, wheelchair, grab bars at home. Patient has been to rehab unit in the past. Patient has had [facility] HHC in the past. is requesting HHC at discharge, RN CM updated that list will be provided and placed in patient's folder in room for him to review. RN CM to assist with HHC setup after list reviewed. Disposition Plan: Patient to discharge home with HHC, family support, and follow-up plans in place. Acacia MONROY, RN, CM
[2019-08-09] MEDS: Multivitamin (Healthy Eyes) Capsule 1 CAP PO ×2 (10:37→18:18)
[2019-08-09] MEDS: Aspirin 81 MG TAB.CHEW PO (10:37)
[2019-08-09] MEDS: amLODIPine 5 MG Tablet PO (10:37)
[2019-08-09] MEDS: Carvedilol 12.5 MG Tablet PO ×2 (10:37→21:04)
[2019-08-09] MEDS: Ciprofloxacin 250 MG Tablet PO (12:06)
[2019-08-09 14:34] VITALS: BP 113/60; PULSE 68; RESP 16; TEMP 36.7; O2SAT 96
--- NOTE | 2019-08-09 14:41 | CASEMGMT ---
RADHA AMBROCIO in to talk with in patient's room. Discussed HHC with and he would like [facility] HHC when patient goes home. mentioned addition therapy at rehab or TCU prior to going home. RADHA AMBROCIO updated and review therapy notes to determine if patient will require SNF at discharge. would like patient to go home if she is able to assist with transfer. RADHA AMBROCIO requested that come in the morning and see patient work with therapy. RADHA AMBROCIO updated SW regarding potential SNF referral.
--- NOTE | 2019-08-09 14:43 | CASEMGMT ---
Addendum entered by Acacia Marcelo 08/09/19 14:59: INDIA received call from Corrie in TCU stating the other patient will be doing peer to peer but is not sure when the peer to peer will be scheduled. Corrie states if peer to peer gets denied, then pt is able to have bed on TCU. RADHA AMBROCIO updated this worker that pt's will be coming in tomorrow morning at 10:00am to watch PT/OT work with pt and determine if pt's is able to take pt home or not. INDIA and RADHA AMBROCIO to continue to follow. Original Note: Social Work Note Pt's may now be thinking SNF for pt and asked about TCU at [facility]. INDIA placed a call to Corrie in TCU. Corrie states that if a different pt gets denied by insurance for TCU then she would have a bed available for pt but if different pt gets approved and comes to TCU then all beds are taken. INDIA provided referral for TCU in the event a bed becomes available. INDIA and RADHA AMBROCIO to follow up with pt's tomorrow to confirm discharge plans. Acacia Marcelo VULNERABILITY RESEARCHER, DATA MODELER
[2019-08-09 20:58] VITALS: BP 138/74; PULSE 68; RESP 18; TEMP 36.7; O2SAT 98
[2019-08-09] MEDS: Donepezil HCl 10 MG Tablet PO (21:04)
[2019-08-10 03:04] VITALS: BP 108/53; PULSE 67; RESP 16; TEMP 36.4; O2SAT 96
[2019-08-10] MEDS: Nystatin Powder 15gm Bottle 1 APPLIC TOPICAL ×2 (05:33→13:16)
[2019-08-10] MEDS: Enoxaparin 30 MG/0.3 ML Syringe SC (05:34)
[2019-08-10] MEDS: Menthol/Lanolin/Calamine/Znox 113 GM Tube 1 APPLIC TOPICAL (05:34)
[2019-08-10] MEDS: Levothyroxine 100 MCG Tablet 75 MCG PO (05:35)
[2019-08-10] MEDS: Ciprofloxacin 250 MG Tablet PO (05:35)
[2019-08-10 06:47] LABS: ALB/GLOB Ratio 0.7 RATIO (0.9-2.4); AST(SGOT) 15 U/L (15-37); Alanine Aminotransfer ALT/SGPT 20 U/L (13-56); Albumin, Serum 2.5 g/dL (3.2-5.0); Alkaline Phosphatase 67 U/L (45-117); Anion Gap 5 (5-15); BUN 28 mg/dL (7-18); BUN/Creat Ratio 17.2 RATIO (10-20); Calcium,Total 8.9 mg/dL (8.5-10.1); Chloride 116 mmol/L (98-107); Creatinine, Serum 1.63 mg/dL (0.55-1.02); EST Glomerular Filtration Rate 33 mL/min (>60); Est Glom Filt Rate - Afr Amer 40 mL/min (>60); Estimated Creatinine Clearance 25.43 ml/min; Globulin 3.7 g/dL (2.2-4.2); Glucose 78 mg/dL (74-106); Potassium 4.4 mmol/L (3.5-5.1); Protein, Total 6.2 g/dL (6.4-8.2); Sodium Level 144 mmol/L (136-145)
[2019-08-10 09:52] VITALS: BP 129/48; PULSE 60; RESP 16; TEMP 37.1; O2SAT 97
[2019-08-10 09:54] VITALS: PULSE 60
[2019-08-10] MEDS: Aspirin 81 MG TAB.CHEW PO (10:01)
[2019-08-10] MEDS: Multivitamin (Healthy Eyes) Capsule 1 CAP PO (10:01)
[2019-08-10] MEDS: Carvedilol 12.5 MG Tablet PO (10:01)
[2019-08-10] MEDS: amLODIPine 5 MG Tablet PO (10:02)
--- NOTE | 2019-08-10 11:57 | CASEMGMT ---
Social Work Note INDIA received call from Lise with TCU stating pt is able to admit to TCU today. INDIA met with pt and pt's Shiva present in room. INDIA introduced self and role at [facility]. Pt does have history of dementia, is only alert and orientated x1. Pt's agreeable to TCU at discharge. INDIA updated Shiva that medically pt is ready for discharge and will be discharged to TCU today. Physician updated. Plan: TCU today Acacia Marcelo MSW, MEDICAL ASSOCIATE
--- NOTE | 2019-08-10 12:00 | PCM.TXEXTCAR ---
- Diet 08/07/19 15:39 Diet: Cardiac/Low Cholesterol Food consistency:: Regular Liquid Consistency:: Regular/Thin Type of Dietary Supplement:: [place] Breakfast Is pt able to select menu?: No Diet Comments: SEND YOGURT, ENSURE PUDDING OR APPLESAUCE ON EACH TRAY-SET UP - Routine Orders/Code Status Routine Lab Work: CBC - within 3 days, BMP - within 3 days - Therapies Weight Bearing: Weight bearing as tolerated Physical Therapy: Eval and Treat Occupational Therapy: Eval and Treat - Allergies/Procedures Done in Hospital Allergies/Adverse Reactions: Allergies Penicillins [PCN] Allergy (Verified 08/07/19 11:39) Unknown Procedures: None - Type of Care/Length of Stay Estimated LOS: Convalescent Care Less Than 30 days Type of Care Needed: Skilled Rehab Potential: Fair Prognosis: Fair - Additional Orders/Day of Discharge Additional Orders: Patient will complete 5 more doses of oral cipro. Day of Discharge: 08/10/19 - Dietary and Speech Recommendations Dietitian Recommendations/Changes: Continue cardiac diet with carnation instant breakfast at meals as ordered. - Follow Up Care Primary Care Physician: Kirit Padgett MD [Primary Care Provider] - Please follow up with your Primary Care Physician in: within 1-2 weeks of discharge
--- NOTE | 2019-08-10 12:05 | PCM.DC.SUM ---
Discharge Date and Diagnosis - Problem List Patient Problems: Active and Suspected Problems Debility (Acute) Generalized weakness (Acute) Urinary tract infection (Acute) Date of Admission: 08/07/19 Date of Discharge: 08/10/19 - Primary Discharge Diagnosis Acute metabolic encephalopathy, present on admission Acute UTI - Secondary Discharge Diagnosis Chronic Problems Dementia (Chronic) Hypothyroid (Chronic) Hypertension (Chronic) Hospital Course and Treatment Imaging Results: Clinical Impression(s) from Imaging Studies Brain CT 08/07/19 11:48 IMPRESSION: Chronic involutional changes of the brain. No acute intracranial process. Electronically Signed: Andrea Shea MD at 13:39 EST Tel , Service support , Chest X-Ray 08/07/19 11:49 IMPRESSION: Hypoventilatory changes. No active pulmonary disease. Electronically Signed: Andrea Shea MD at 14:17 EST Tel , Service support , Femur X-Ray 08/07/19 11:50 IMPRESSION: No demonstrated acute osseous injury. Electronically Signed: Andrea Shea MD at 14:20 EST Tel , Service support , Femur X-Ray 08/07/19 11:50 IMPRESSION: Postoperative changes. No demonstrated acute osseous injury. Electronically Signed: Andrea Shea MD at 14:19 EST Tel , Service support , None Operations: None, - - 10/15 left hip cephalomedullary nail Procedures: None Summary of Care Provided: 74 y/o female with past medical history of hypertension, dementia, hypothyroidism, cared for by her at home who was admitted with progressive weakness and fatigue . She was managed on Acute UTI. Urine cultures showed no growth. Patient was managed on IV Cipro and discharged on po cipro. Her hypokalemia was replaced. Her TSH was elevated, her synthroid was adjusted. Patient was seen by PT/OT and skilled for discharge to long-term facility. Her who is her primary caregiver could not take care of her. Patient Problems: Active and Suspected Problems Debility (Acute) Generalized weakness (Acute) Urinary tract infection (Acute) Subjective: On the day of discharge, patient was seen and examined. She denied any new complains. Objective: Physical exam: General: Alert, Cooperative, No apparent distress, Confused, alert oriented to self only HEENT: Atraumatic, PERRLA, EOMI, Normocephalic Oral: Moist Mucosa Neck: Supple, No JVD, Negative Carotid Bruits Lungs: Clear to auscultation, Normal air movement, No rhonchi, No wheeze, No rales Cardiovascular: Regular rate, Regular Rhythm, Normal S1, Normal S2, No murmurs Abdomen: Bowel Sounds Present, Soft, Non Tender, Non-Distended, No Hepato-splenomegaly Extremities: No clubbing, No cyanosis, No edema, Capillary Refill Less than 3 Seconds Skin: No rashes, No breakdown Musculoskeletal: No Tenderness to Palpation of Joints or Extremities Lymphatic: No Cervical, Supraclavicular, or Inguinal Adenopathy Neurological: Cranial nerves II-XII grossly intact, Neuro grossly intact Psych/Mental Status: Flat Affect - Physical Exam Vitals/I&O's: Vital Signs Temp Pulse Resp BP Pulse Ox 98.8 F 60 16 129/48 H 97 08/10/19 09:52 08/10/19 09:54 08/10/19 09:52 08/10/19 09:52 08/10/19 09:52 Oxygen Delivery Method Room Air Weight: 79 kg Body Mass Index (BMI) 30.8 Intake and Output for Last 24 Hours 08/08/19 08/09/19 08/10/19 23:59 23:59 23:59 Intake Total 1370 / 1470 200 / 200 100 / 100 Balance 1370 / 1470 200 / 200 100 / 100 Microbiology Past 72 Hours 08/07/19 13:35 Urine Catheter - Catheter Urine Culture - Final Culture exhibits no growth. Laboratory Results 08/10/19 05:46: Sodium 144, Potassium 4.4, Chloride 116 H, Carbon Dioxide 23.0, Anion Gap 5, BUN 28 H, Creatinine 1.63 H, Estim Creat Clear Calc 25.43, Est GFR (MDRD) Af Amer 40 L, Est GFR (MDRD) Non-Af 33 L, BUN/Creatinine Ratio 17.2, Glucose 78, Calcium 8.9, Total Bilirubin 0.20, AST 15, ALT 20, Alkaline Phosphatase 67, Total Protein 6.2 L, Albumin 2.5 L, Globulin 3.7, Albumin/Globulin Ratio 0.7 L Current Medications Acetaminophen (Tylenol) 650 mg PO Q6H PRN PRN PRN Reason: Pain Score 1-3/Temp > 100.7 F Amlodipine Besylate (Norvasc) 5 mg PO DAILY [facility] Last Admin: 08/10/19 10:02 Dose: 5 mg Documented by: Aspirin (Aspirin, Baby) 81 mg PO DAILY@0800 [facility] Last Admin: 08/10/19 10:01 Dose: 81 mg Documented by: Calamine/Phenol (Calmoseptine Ointment) 1 applic TOPICAL TID PRN; Protocol PRN Reason: rectal excoriation Last Admin: 08/10/19 05:34 Dose: 1 applicatio Documented by: Carvedilol (Coreg) 12.5 mg PO BID [facility] Last Admin: 08/10/19 10:01 Dose: 12.5 mg Documented by: Ciprofloxacin HCl (Cipro) 250 mg PO Q18H [facility] Last Admin: 08/10/19 05:35 Dose: 250 mg Documented by: Donepezil HCl (Aricept) 10 mg PO QHS [facility] Last Admin: 08/09/19 21:04 Dose: 10 mg Documented by: Enoxaparin Sodium (Lovenox) 30 mg SC DAILY@0600 [facility] Last Admin: 08/10/19 05:34 Dose: 30 mg Documented by: Glucagon () 1 mg IM .X1 PRN PRN Reason: Hypoglycemia Dextrose (Dextrose 10%-Water) 250 mls @ 999 mls/hr IV .Q16M PRN; Protocol PRN Reason: HYPOGLYCEMIA Levothyroxine Sodium (Synthroid) 75 mcg PO DAILY@0600 [facility] Last Admin: 08/10/19 05:35 Dose: 75 mcg Documented by: Multivitamins/Minerals (Healthy Eyes) 1 capsule PO BIDCM [facility] Last Admin: 08/10/19 10:01 Dose: 1 capsule Documented by: Nystatin (Mycostatin Powder) 1 applic TOPICAL TID [facility]; Protocol Last Admin: 08/10/19 05:33 Dose: 1 applicatio Documented by: Ondansetron HCl (Zofran) 4 mg IV Q8H PRN PRN PRN Reason: NAUSEA/VOMITING Sodium Chloride () 10 - 40 ml IV UD PRN PRN Reason: SALINE FLUSH Discharge Diet: Low fat/ Low Cholesterol, 2000 mg Sodium Diet Home Medications: Medications to take at Discharge Amlodipine Besylate [Norvasc] 1 tab PO DAILY 10/14/16 Donepezil HCl [Aricept] 10 mg PO QHS 10/14/16 Vit A/Vit C/Vit E/Zinc/Copper [Preservision Areds Softgel] 1 each PO BID 10/14/16 Aspirin [Aspirin, Baby] 81 mg PO DAILY@0800 08/07/19 Carvedilol [Coreg] 12.5 mg PO BID 08/07/19 Acetaminophen [Tylenol Tablet] 650 mg PO Q6H PRN PRN tab 08/10/19 Ciprofloxacin [Cipro] 250 mg PO Q18H 08/10/19 Levothyroxine [Synthroid] 75 mcg PO DAILY@0600 08/10/19 Primary Care Physician: Kirit Padgett MD [Primary Care Provider] - Please follow up with your Primary Care Physician in: within 1-2 weeks of discharge Disposition: [facility] facility Minutes spent on discharge:: 40 Patient Condition:: Stable Medical Necessity - Tobacco Use Smoking Status: Never smoker Tobacco Use: Non-smoker Meaningful Use Info Meaningful Use Diagnoses (Choose all that apply): None applicable Code Visit Inpatient E&M: 85620 Subs Hosp L2
--- NOTE | 2019-08-10 13:24 | NURSING ---
Report called to Curtis GARCIA.
[2019-08-10 13:28] VITALS: BP 100/44; PULSE 66; RESP 18; TEMP 36.6; O2SAT 99
== END 2019-08-10 14:40 | disposition skilled nursing facility (03) | DRG 689 ==
LOC: ED 12:20 → MS3 14:19
PROVIDERS: Admitting Provider Student in an Organized Health Care Education/Training Program; Emergency Provider Emergency Medicine; Family Provider Family Medicine; PCP Family Medicine; Referring Provider Student in an Organized Health Care Education/Training Program; Visit Provider Internal Medicine
DX: N39.0 Urinary tract infection, site not specified (principal); G93.41 Metabolic encephalopathy; N18.3 Chronic kidney disease, stage 3 (moderate); E03.9 Hypothyroidism, unspecified; F03.90 Unspecified dementia, unspecified severity, without behavioral disturbance, psychotic disturbance, mood disturbance, and anxiety; I12.9 Hypertensive chronic kidney disease with stage 1 through stage 4 chronic kidney disease, or unspecified chronic kidney disease; E87.6 Hypokalemia
CPT/HCPCS: 36415; 70450; 71045; 73552; 80048; 80053; 81001; 82550; 83605; 84439; 84443; 84481; 84484; 85025; 87086; 93005; 97116; 97162; 97165; 97530; 99285; J7030; P9612; A4216; J0744

== ENCOUNTER 2019-08-10 15:12 | Inpatient (IN) | payer MEDICARE, OTHER, SELFPAY ==
[2019-08-07 15:04] VITALS: BMI 30.8
[2019-08-10 15:16] VITALS: BP 114/44; PULSE 63; RESP 18; TEMP 36.6; O2SAT 99
[2019-08-10 15:19] VITALS: BMI 30.6
[2019-08-10 15:25] VITALS: BMI 30.6
--- NOTE | 2019-08-10 15:30 | NURSING ---
Addendum entered by Jenifer Ortiz 08/10/19 17:33: in room helping feed patient Original Note: pt admitted to TCU Rm 01 from [facility] around 1500 via bed, pt incontinent and confused, family at bedside, pleasant and cooperate, vitals and assessment obtained, pt educated partition notcher light will need to be reminded
[2019-08-10 16:00] VITALS: BP 114/44; PULSE 63; RESP 18; TEMP 36.6; O2SAT 99
--- NOTE | 2019-08-10 16:32 | HP.PCM_ITS ---
Problem List (1) Debility Status: Acute (2) Generalized weakness Status: Acute (3) Urinary tract infection Status: Acute (4) Alzheimer disease Status: Chronic (5) Macular degeneration Status: Chronic (6) Hypothyroid Status: Chronic Qualifiers: (7) Hypertension Status: Chronic Qualifiers: History of Present Illness Date of Admission: 08/10/19 Chief Complaint: Here for rehabilitation, strengthening, prior to disposition determination. The patient is a 74 year old Female with below past medical history presented to [facility] Emergency Department 08/07/2019 with weakness. 08/07/2019 CT brain chronic involutional changes of brain. 08/07/2019 Chest X-ray negative. 08/07/2019 X-ray right femur negative. 08/07/2019 EKG sinus bradycardia, ST&T wave abnormality, consider lateral ischemia. Poor historian due to Alzheimer's Disease, history per . Weak x 3 weeks, baseline walks with walker. Weaker, now uses wheelchair, no walking for 1 week. Needs 's help to transfer. Nausea/vomiting 3 weeks prior, but resolved. Troponin negative, UA consistent with urinary tract infection, lactic acid 1.0. CPK 18, Albumin 2.1, BUN 24, Cr 1.46, Glucose 109. Hemoglobin 11.1, Hematocrit 34.8. IV Rocephin, IV Fentanyl given. 08/07/2019 Admit to Hospital. Urine cultures, blood cultures sent. Cipro IV, IV fluids for uncomplicated urinary tract infection. PT/OT consulted. unable to care for patient at home. 08/08/2019 Urine culture pending. TSH suppressed, Check T3, Free T4. 08/09/2019 Urine culture negative. 5 days of antibiotics for uncomplicated UTI. Replete potassium. 08/10/2019 Admit to TCU with debility, here for rehabilitation, strengthening, prior to disposition determination. Past Medical History Past Medical History (Chronic Problems): Chronic Problems Alzheimer disease (Chronic) Macular degeneration (Chronic) Dementia (Chronic) Hypothyroid (Chronic) Hypertension (Chronic) Allergies Penicillins [PCN] Allergy (Verified 08/07/19 11:39) Unknown Home Medications: Ambulatory Orders Medication Instructions Recorded Amlodipine Besylate [Norvasc] 1 tab PO DAILY 10/14/16 Donepezil HCl [Aricept] 10 mg PO QHS 10/14/16 Vit A/Vit C/Vit E/Zinc/Copper 1 each PO BID 10/14/16 [Preservision Areds Softgel] Aspirin [Aspirin, Baby] 81 mg PO DAILY@0800 08/07/19 Carvedilol [Coreg] 12.5 mg PO BID 08/07/19 Acetaminophen [Tylenol Tablet] 650 mg PO Q6H PRN PRN tab 08/10/19 Ciprofloxacin [Cipro] 250 mg PO Q18H 08/10/19 Levothyroxine [Synthroid] 75 mcg PO DAILY@0600 08/10/19 Surgical History: no surgical history Psychiatric History: No pertinent psych hx MANAGER FINANCIAL SERVICES History: No pertinent MANAGER FINANCIAL SERVICES history Lives: Spouse/ Significant Other Smoking Status: Never smoker Tobacco Use: Non-smoker Alcohol: None Drugs: None - *Family History Maternal History Items: No pertinent history Review of Systems Constitutional: Reports: Weakness. Denies: Chills, Fever, Weight Change HEENT: Denies: Head Aches, Sinus Congestion, Sinus Drainage Cardiovascular: Denies: Chest Pain, Palpitations Respiratory: Denies: Cough, Shortness of breath at rest, Sputum production Gastrointestinal: Denies: Abdominal Pain, Nausea, Vomiting Genitourinary: Denies: Dysuria Musculoskeletal: Denies: Joint Pain, Joint Tenderness Skin: Denies: Rash, Wounds Neurological: Denies: Numbness, Tingling, Focal weakness Psychiatric: Denies: Anxiety, Depression, Homicidal Ideations, Suicidal Ideations Hematologic/ Lymphatic: Denies: Easy Bruising, Easy Bleeding VTE Information - Inpt Only VTE Present on Admission: No VTE Mechan Device Prophylaxis: Knee High EARLE Hose VTE Pharm Prophylaxis ordered?: Yes Patient Problems: Active and Suspected Problems Debility (Acute) Generalized weakness (Acute) Urinary tract infection (Acute) - Physical Exam Vitals/I&O's: Vital Signs Temp Pulse Resp BP Pulse Ox 97.8 F 63 18 114/44 L 99 08/10/19 15:16 08/10/19 15:16 08/10/19 15:16 08/10/19 15:16 08/10/19 15:16 Oxygen Delivery Method Room Air Weight: 78.471 kg Body Mass Index (BMI) 30.6 General: Alert, Oriented x3, Cooperative HEENT: Atraumatic, PERRLA, EOMI, Normocephalic Neck: Supple, No JVD, Negative Carotid Bruits Lungs: Clear to auscultation, Normal air movement Cardiovascular: Regular rate, No murmurs Abdomen: Bowel Sounds Present, Soft, Non Tender Extremities: No edema, Capillary Refill Less than 3 Seconds Skin: No rashes, No breakdown Musculoskeletal: No Tenderness to Palpation of Joints or Extremities Neurological: Cranial nerves II-XII grossly intact Psych/Mental Status: Normal Affect, Appropriate Current Medications Acetaminophen (Tylenol) 650 mg PO Q6H PRN PRN PRN Reason: Pain Score 1-3/Temp > 100.7 F Amlodipine Besylate (Norvasc) 5 mg PO DAILY [facility] Aspirin (Aspirin, Baby) 81 mg PO DAILY@0800 [facility] Calamine/Phenol (Calmoseptine Ointment) 1 applic TOPICAL BID [facility]; Protocol Carvedilol (Coreg) 12.5 mg PO BID [facility] Ciprofloxacin HCl (Cipro) 250 mg PO Q18H [facility] Stop: 08/13/19 23:31 Donepezil HCl (Aricept) 10 mg PO QHS [facility] Levothyroxine Sodium (Synthroid) 75 mcg PO DAILY@0600 [facility] Multivitamins/Minerals (Healthy Eyes) 1 capsule PO BID [facility] Nutritional Formula (Lactose Free) (Ensure Enlive) 120 ml PO 4X/DAY [facility] Nystatin (Mycostatin Powder) 1 applic TOPICAL BID [facility]; Protocol Tuberculin PPD (Tubersol, Aplisol, Ppd) 5 tu ID X1 ONE Stop: 08/11/19 10:01 Tuberculin PPD (Tubersol, Aplisol, Ppd) 5 tu ID X1 ONE Stop: 08/18/19 10:01 Assessment/Plan All Active Problems Debility (Acute) Generalized weakness (Acute) Urinary tract infection (Acute) CKD (chronic kidney disease) stage 3, GFR 30-59 ml/min (Acute) Anemia (Acute) Intertrochanteric fracture of left hip (Acute) 74 year old female with below past medical history hospitalized for weakness secondary to uncomplicated urinary tract infection, complicated by hypokalemia, admitted to TCU with debility, here for rehabilitation, strengthening, prior to disposition determination. * Debility - PT/OT. * Cognition - ST. * Pain - Tylenol 1000MG Q6H PRN pain (1-10) * Bowel - Miralax 17GM daily, Senna/colace 1 tablet BID, Dulcolax 10MG daily PRN. * Adult immunization - Administer Prevnar 13, Pneumovax 23, Fluzone as necessary. * DVT prophylaxis - Lovenox 30MG SC daily. * Hypertension - Coreg 12.5MG BID, Amlodipine 5MG daily. * CV prophylaxis - Aspirin 81MG daily. * Urinary Tract Infection - Cipro 250MG Q18H thru 08/13/2019. * Alzheimer's Disease - Donepezil 10MG QHS. * Nutrition - Ensure Enlive 120ML 4x/day. * Hypothyroidism - Levothyroxine 75MCG daily. * Skin irritation - Calmoseptine BID. * Macular degeneration - Healthy Eyes 1 tablet BID. * Tinea Corporis - Nystatin powder topical BID. * Acute Kidney Injury - Normal Saline 70cc/hour, repeat BMP in AM.
[2019-08-10] MEDS: Menthol/Lanolin/Calamine/Znox 113 GM Tube 1 APPLIC TOPICAL (17:16)
[2019-08-10] MEDS: Nystatin Powder 15gm Bottle 1 APPLIC TOPICAL (17:18)
[2019-08-10] MEDS: Carvedilol 12.5 MG Tablet PO (17:18)
[2019-08-10] MEDS: Multivitamin (Healthy Eyes) Capsule 1 CAP PO (17:19)
[2019-08-10] MEDS: Senna/Docusate Sodium 1 Tablet PO (17:25)
[2019-08-10] MEDS: Donepezil HCl 10 MG Tablet PO (19:59)
[2019-08-10] MEDS: Ciprofloxacin 250 MG Tablet PO (23:30)
[2019-08-11] MEDS: Levothyroxine 75 MCG Tablet PO (05:06)
[2019-08-11] MEDS: Enoxaparin 30 MG/0.3 ML Syringe SC (05:06)
[2019-08-11] MEDS: Menthol/Lanolin/Calamine/Znox 113 GM Tube 1 APPLIC TOPICAL ×2 (05:06→16:54)
[2019-08-11] MEDS: Senna/Docusate Sodium 1 Tablet PO ×2 (05:06→16:55)
[2019-08-11] MEDS: Carvedilol 12.5 MG Tablet PO ×2 (05:06→16:54)
[2019-08-11] MEDS: Multivitamin (Healthy Eyes) Capsule 1 CAP PO ×2 (05:06→16:55)
[2019-08-11] MEDS: amLODIPine 5 MG Tablet PO (05:07)
[2019-08-11] MEDS: Nystatin Powder 15gm Bottle 1 APPLIC TOPICAL ×2 (05:07→18:25)
[2019-08-11] MEDS: Polyethylene Glycol 3350 17 GM PACKET PO (05:12)
[2019-08-11 06:43] LABS: Absolute Lymphocyte Count 2.24 X10^3/uL (0.83-4.51); Absolute Neutrophil Count 2.8 X10^3/uL (2.0-7.7); Basophil# 0.05 X10^3/uL; Basophil% 0.8 % (0-1); Eosinophil# 0.23 X10^3/uL; Eosinophils% 3.9 % (0-5); Hematocrit 31.3 % (37-47); Hemoglobin 9.8 g/dL (12.0-15.0); Lymphocyte # 2.24 X10^3/ul (4.0); Lymphocyte % 37.9 % (19-41); Mean Corp Hgb Conc 31.3 g/dL (32-36); Mean Corpuscular Hgb 30.3 pg (27.0-32.0); Mean Corpuscular Volume 96.9 fL (81-99); Mean Platelet Vol. 10.8 fl (6.2-12.0); Monocyte# 0.59 X10^3/uL; NRBC Flagged by Analyzer 0 % (0-5); Neutrophil # 2.77 X10^3/uL (2.7-7.7); Neutrophil % 46.9 % (47-70); Platelet Count 170 K/mm3 (150-450); RBC Distribution Width CV 13.6 % (11.6-14.6); RBC Distribution Width SD 48.6 fl (35.1-43.9); Red Blood Count 3.23 M/mm3 (4.2-5.4); White Blood Count 5.9 K/mm3 (4.4-11.0)
[2019-08-11 06:46] LABS: Anion Gap 7 (5-15); BUN 38 mg/dL (7-18); BUN/Creat Ratio 19.5 RATIO (10-20); Calcium,Total 9.5 mg/dL (8.5-10.1); Chloride 112 mmol/L (98-107); Creatinine, Serum 1.95 mg/dL (0.55-1.02); EST Glomerular Filtration Rate 27 mL/min (>60); Est Glom Filt Rate - Afr Amer 32 mL/min (>60); Estimated Creatinine Clearance 21.25 ml/min; Glucose 105 mg/dL (74-106); Potassium 4.3 mmol/L (3.5-5.1); Sodium Level 144 mmol/L (136-145)
[2019-08-11] MEDS: Aspirin 81 MG TAB.CHEW PO (07:44)
[2019-08-11 10:00] VITALS: RESP 16
[2019-08-11] MEDS: Tuberculin,Purif.prot.deriv. 50 TU/ML Vial 5 ML ID (10:29)
[2019-08-11] MEDS: 0.9% Normal Saline 1,000 ML 75 ML IV (13:37)
[2019-08-11] MEDS: 0.9% Saline Lock 10 ML Syringe IV (13:39)
[2019-08-11 15:16] VITALS: BP 123/60; PULSE 73; RESP 18; TEMP 36.6; O2SAT 97
[2019-08-11] MEDS: Ciprofloxacin 250 MG Tablet PO (16:54)
[2019-08-11] MEDS: Donepezil HCl 10 MG Tablet PO (20:29)
[2019-08-12] MEDS: Acetaminophen 500 MG Tablet 1000 MG PO (00:45)
[2019-08-12] MEDS: Menthol/Lanolin/Calamine/Znox 113 GM Tube 1 APPLIC TOPICAL ×2 (00:46→17:24)
--- NOTE | 2019-08-12 01:02 | NURSING ---
Pt was found to be picking at IV, drg to Iv soaked with blood, tubing was disconnected by pt, reconnected tubing , reinforced IV site with Kerlix and netting, clean gown and clean linens changed, reeducated pt the importance of leaving IV alone,
[2019-08-12] MEDS: 0.9% Normal Saline 1,000 ML 75 ML IV (03:09)
[2019-08-12] MEDS: Carvedilol 12.5 MG Tablet PO ×2 (05:37→17:26)
[2019-08-12] MEDS: Multivitamin (Healthy Eyes) Capsule 1 CAP PO ×2 (05:37→17:26)
[2019-08-12] MEDS: Enoxaparin 30 MG/0.3 ML Syringe SC (05:37)
[2019-08-12] MEDS: Levothyroxine 75 MCG Tablet PO (05:37)
[2019-08-12] MEDS: amLODIPine 5 MG Tablet PO (05:38)
[2019-08-12] MEDS: Nystatin Powder 15gm Bottle 1 APPLIC TOPICAL ×2 (05:38→17:25)
[2019-08-12] MEDS: Senna/Docusate Sodium 1 Tablet PO ×2 (05:38→17:26)
[2019-08-12 06:06] LABS: Anion Gap 7 (5-15); BUN 44 mg/dL (7-18); BUN/Creat Ratio 26.2 RATIO (10-20); Calcium,Total 8.8 mg/dL (8.5-10.1); Chloride 113 mmol/L (98-107); Creatinine, Serum 1.68 mg/dL (0.55-1.02); EST Glomerular Filtration Rate 32 mL/min (>60); Est Glom Filt Rate - Afr Amer 38 mL/min (>60); Estimated Creatinine Clearance 24.67 ml/min; Glucose 83 mg/dL (74-106); Potassium 4.7 mmol/L (3.5-5.1); Sodium Level 143 mmol/L (136-145)
[2019-08-12] MEDS: 0.9% Saline Lock 10 ML Syringe IV (08:38)
--- NOTE | 2019-08-12 09:05 | NURSING ---
IV DISCONNECTED AT THIS TIME PER DR VALENTINE ORDERS.
[2019-08-12 10:05] VITALS: PULSE 66; RESP 18; O2SAT 96
[2019-08-12] MEDS: Ciprofloxacin 250 MG Tablet PO (12:03)
--- NOTE | 2019-08-12 14:39 | PHA.CONS_ITS ---
<Mitchell Mora D - Last Filed: 08/12/19 14:39> Progress Note - Pharmacy Subjective: TCU Admission Objective: Allergies Penicillins [PCN] Allergy (Verified 08/07/19 11:39) Unknown Current Medications Generic Name Dose Route Start Last Admin Trade Name Freq PRN Reason Stop Dose Admin Acetaminophen 1,000 mg 08/10/19 16:48 08/12/19 00:45 Tylenol PO 1,000 mg Q6H PRN PRN Administration Pain Score 1-10/10 Amlodipine Besylate 5 mg 08/11/19 06:00 08/12/19 05:38 Norvasc PO 5 mg DAILY JOSUE Administration Bisacodyl 10 mg 08/10/19 16:47 Dulcolax PO DAILY PRN Constipation Calamine/Phenol 1 applic 08/10/19 18:00 08/12/19 00:46 Calmoseptine Ointment TOPICAL 1 applicatio BID JOSUE Administration Protocol Carvedilol 12.5 mg 08/10/19 18:00 08/12/19 05:37 Coreg PO 12.5 mg BID JOSUE Administration Ciprofloxacin HCl 250 mg 08/10/19 23:30 08/12/19 12:03 Cipro PO 08/13/19 23:31 250 mg Q18H JOSUE Administration Donepezil HCl 10 mg 08/10/19 22:00 08/11/19 20:29 Aricept PO 10 mg QHS JOSUE Administration Emollient Ointment 1 applic 08/11/19 06:00 08/12/19 05:36 Eucerin Intensive Repair TOPICAL 1 applicatio 2200,0600 [facility] Administration Protocol Enoxaparin Sodium 30 mg 08/11/19 06:00 08/12/19 05:37 Lovenox SC 30 mg DAILY@0600 JOSUE Administration Levothyroxine Sodium 75 mcg 08/11/19 06:00 08/12/19 05:37 Synthroid PO 75 mcg DAILY@0600 [facility] Administration Multivitamins/Minerals 1 capsule 08/10/19 18:00 08/12/19 05:37 Healthy Eyes PO 1 capsule BID JOSUE Administration Nystatin 1 applic 08/10/19 18:00 08/12/19 05:38 Mycostatin Powder TOPICAL 1 applicatio BID JOSUE Administration Protocol Polyethylene Glycol 17 gm 08/11/19 06:00 08/12/19 05:44 Miralax PO Not Given DAILY JOSUE Senna/Docusate Sodium 1 tablet 08/10/19 18:00 08/12/19 05:38 Senokot-S, Florecita-Colace PO 1 tablet BID JOSUE Administration Sodium Chloride 10 - 40 ml 08/11/19 12:23 08/12/19 08:38 IV 10 ml UD PRN Administration SALINE FLUSH Tuberculin PPD 5 tu 08/18/19 10:00 Tubersol, Aplisol, Ppd ID 08/18/19 10:01 X1 ONE Problem List Debility (Acute) Generalized weakness (Acute) Urinary tract infection (Acute) Alzheimer disease (Chronic) Macular degeneration (Chronic) Vital Signs Temp Pulse Resp BP Pulse Ox 98 F 66 18 123/60 H 96 08/11/19 15:16 08/12/19 10:05 08/12/19 10:05 08/11/19 15:16 08/12/19 10:05 Oxygen Delivery Method Room Air Weight: 78.471 kg Body Mass Index (BMI) 30.6 Sodium 143 mmol/L (136-145) 08/12/19 05:05 Potassium 4.7 mmol/L (3.5-5.1) 08/12/19 05:05 Chloride 113 mmol/L (98-107) H 08/12/19 05:05 Carbon Dioxide 23.0 mmol/L (21.0-32.0) 08/12/19 05:05 Anion Gap 7 (5-15) 08/12/19 05:05 BUN 44 mg/dL (7-18) H 08/12/19 05:05 Creatinine 1.68 mg/dL (0.55-1.02) H 08/12/19 05:05 Est GFR (MDRD) Af Amer 38 mL/min (>60) L 08/12/19 05:05 Est GFR (MDRD) Non-Af 32 mL/min (>60) L 08/12/19 05:05 BUN/Creatinine Ratio 26.2 RATIO (10-20) H 08/12/19 05:05 Glucose 83 mg/dL (74-106) 08/12/19 05:05 Assessment/Plan: 1) Pain APAP for pain score 1-10. Continue to monitor daily pain scores, prn medication use. 2) HTN Carvedilol, amlodipine. Continue to monitor BP/HR. 3) Alzheimer's Donepezil. Continue to monitor clinically. 4) ID Ciprofloxacin thru 08/13. Continue to monitor s/s infection. 5) DVT PPx Enoxaparin. Continue to monitor for bleeding/clot. 6) Hypothyroidism Levothyroxine. Continue to monitor s/s hyper/hypothyroidism. 7) Nutrition Multivitamin. Continue to monitor clinically. Psychotropic Medications: None Unnecessary Medications: None Bowel Regimen: 8) Senna/s, PEG, prn bisacodyl. Continue to monitor prn medication use, for constipation/diarrhea. Date of Note:: 08/12/19 - Provider Comments Provider responsibility: Provider responsible to enter orders to implement recommendations <Phu Llamas Chi - Last Filed: 08/12/19 17:50> Progress Note - Pharmacy Subjective: [] Objective: Allergies Penicillins [PCN] Allergy (Verified 08/07/19 11:39) Unknown Current Medications Generic Name Dose Route Start Last Admin Trade Name Freq PRN Reason Stop Dose Admin Acetaminophen 1,000 mg 08/10/19 16:48 08/12/19 00:45 Tylenol PO 1,000 mg Q6H PRN PRN Administration Pain Score 1-10/10 Amlodipine Besylate 5 mg 08/11/19 06:00 08/12/19 05:38 Norvasc PO 5 mg DAILY JOSUE Administration Bisacodyl 10 mg 08/10/19 16:47 Dulcolax PO DAILY PRN Constipation Calamine/Phenol 1 applic 08/10/19 18:00 08/12/19 17:24 Calmoseptine Ointment TOPICAL 1 applicatio BID JOSUE Administration Protocol Carvedilol 12.5 mg 08/10/19 18:00 08/12/19 17:26 Coreg PO 12.5 mg BID JOSUE Administration Ciprofloxacin HCl 250 mg 08/10/19 23:30 08/12/19 12:03 Cipro PO 08/13/19 23:31 250 mg Q18H JOSUE Administration Donepezil HCl 10 mg 08/10/19 22:00 08/11/19 20:29 Aricept PO 10 mg QHS JOSUE Administration Emollient Ointment 1 applic 08/11/19 06:00 08/12/19 05:36 Eucerin Intensive Repair TOPICAL 1 applicatio 2200,0600 JOSUE Administration Protocol Enoxaparin Sodium 30 mg 08/11/19 06:00 08/12/19 05:37 Lovenox SC 30 mg DAILY@0600 JOSUE Administration Levothyroxine Sodium 75 mcg 08/11/19 06:00 08/12/19 05:37 Synthroid PO 75 mcg DAILY@0600 JOSUE Administration Multivitamins/Minerals 1 capsule 08/10/19 18:00 08/12/19 17:26 Healthy Eyes PO 1 capsule BID JOSUE Administration Nystatin 1 applic 08/10/19 18:00 08/12/19 17:25 Mycostatin Powder TOPICAL 1 applicatio BID JOSUE Administration Protocol Polyethylene Glycol 17 gm 08/11/19 06:00 08/12/19 05:44 Miralax PO Not Given DAILY [facility] Senna/Docusate Sodium 1 tablet 08/10/19 18:00 08/12/19 17:26 Senokot-S, Florecita-Colace PO 1 tablet BID JOSUE Administration Sodium Chloride 10 - 40 ml 08/11/19 12:23 08/12/19 08:38 IV 10 ml UD PRN Administration SALINE FLUSH Tuberculin PPD 5 tu 08/18/19 10:00 Tubersol, Aplisol, Ppd ID 08/18/19 10:01 X1 ONE Problem List Debility (Acute) Generalized weakness (Acute) Urinary tract infection (Acute) Alzheimer disease (Chronic) Macular degeneration (Chronic) Vital Signs Temp Pulse Resp BP Pulse Ox 98.8 F 75 18 136/73 H 96 08/12/19 16:00 08/12/19 16:00 08/12/19 16:00 08/12/19 16:00 08/12/19 16:00 Oxygen Delivery Method Room Air Weight: 78.471 kg Body Mass Index (BMI) 30.6 Sodium 143 mmol/L (136-145) 08/12/19 05:05 Potassium 4.7 mmol/L (3.5-5.1) 08/12/19 05:05 Chloride 113 mmol/L (98-107) H 08/12/19 05:05 Carbon Dioxide 23.0 mmol/L (21.0-32.0) 08/12/19 05:05 Anion Gap 7 (5-15) 08/12/19 05:05 BUN 44 mg/dL (7-18) H 08/12/19 05:05 Creatinine 1.68 mg/dL (0.55-1.02) H 08/12/19 05:05 Est GFR (MDRD) Af Amer 38 mL/min (>60) L 08/12/19 05:05 Est GFR (MDRD) Non-Af 32 mL/min (>60) L 08/12/19 05:05 BUN/Creatinine Ratio 26.2 RATIO (10-20) H 08/12/19 05:05 Glucose 83 mg/dL (74-106) 08/12/19 05:05 Assessment/Plan: Psychotropic Medications: Unnecessary Medications: Bowel Regimen: - Provider Comments Provider responsibility: Provider responsible to enter orders to implement recommendations Provider Comments to Recommendations by Pharmacy: Agree
[2019-08-12 16:00] VITALS: BP 136/73; PULSE 75; RESP 18; TEMP 37.1; O2SAT 96
[2019-08-12] MEDS: Donepezil HCl 10 MG Tablet PO (19:53)
[2019-08-13] MEDS: Multivitamin (Healthy Eyes) Capsule 1 CAP PO ×2 (05:03→18:25)
[2019-08-13] MEDS: Senna/Docusate Sodium 1 Tablet PO ×2 (05:03→18:25)
[2019-08-13] MEDS: amLODIPine 5 MG Tablet PO (05:03)
[2019-08-13] MEDS: Levothyroxine 75 MCG Tablet PO (05:03)
[2019-08-13] MEDS: Ciprofloxacin 250 MG Tablet PO ×2 (05:03→23:31)
[2019-08-13] MEDS: Enoxaparin 30 MG/0.3 ML Syringe SC (05:04)
[2019-08-13] MEDS: Carvedilol 12.5 MG Tablet PO ×2 (05:04→18:25)
[2019-08-13] MEDS: Menthol/Lanolin/Calamine/Znox 113 GM Tube 1 APPLIC TOPICAL ×2 (05:04→18:20)
[2019-08-13] MEDS: Nystatin Powder 15gm Bottle 1 APPLIC TOPICAL ×2 (05:05→18:20)
[2019-08-13] MEDS: Polyethylene Glycol 3350 17 GM PACKET PO (05:06)
[2019-08-13 10:05] VITALS: PULSE 63; RESP 18; O2SAT 98
[2019-08-13 15:47] VITALS: BP 119/56; PULSE 64; RESP 18; TEMP 36.6; O2SAT 96
[2019-08-13] MEDS: Donepezil HCl 10 MG Tablet PO (20:27)
[2019-08-14] MEDS: Carvedilol 12.5 MG Tablet PO ×2 (04:43→18:11)
[2019-08-14] MEDS: Enoxaparin 30 MG/0.3 ML Syringe SC (04:43)
[2019-08-14] MEDS: Polyethylene Glycol 3350 17 GM PACKET PO (04:43)
[2019-08-14] MEDS: amLODIPine 5 MG Tablet PO (04:44)
[2019-08-14] MEDS: Levothyroxine 75 MCG Tablet PO (04:44)
[2019-08-14] MEDS: Multivitamin (Healthy Eyes) Capsule 1 CAP PO ×2 (04:44→18:11)
[2019-08-14] MEDS: Nystatin Powder 15gm Bottle 1 APPLIC TOPICAL ×2 (04:44→18:23)
[2019-08-14] MEDS: Senna/Docusate Sodium 1 Tablet PO ×2 (04:44→18:11)
[2019-08-14] MEDS: Menthol/Lanolin/Calamine/Znox 113 GM Tube 1 APPLIC TOPICAL ×2 (04:44→18:24)
[2019-08-14 15:27] VITALS: BP 121/70; PULSE 68; RESP 16; TEMP 36.8; O2SAT 95
--- NOTE | 2019-08-14 22:37 | NURSING ---
pt refused to take hs po medications, pt was getting agitated and spitting anything that touched her lips. several attempts were made, with pt continuing behavior
[2019-08-14 23:14] VITALS: PULSE 82; RESP 16; O2SAT 97
[2019-08-15] MEDS: Enoxaparin 30 MG/0.3 ML Syringe SC (07:09)
[2019-08-15] MEDS: Menthol/Lanolin/Calamine/Znox 113 GM Tube 1 APPLIC TOPICAL ×2 (07:09→17:02)
[2019-08-15] MEDS: Nystatin Powder 15gm Bottle 1 APPLIC TOPICAL ×2 (07:10→17:04)
[2019-08-15] MEDS: amLODIPine 5 MG Tablet PO (07:38)
[2019-08-15] MEDS: Carvedilol 12.5 MG Tablet PO ×2 (07:38→17:03)
[2019-08-15] MEDS: Multivitamin (Healthy Eyes) Capsule 1 CAP PO ×2 (07:38→17:03)
[2019-08-15] MEDS: Senna/Docusate Sodium 1 Tablet PO ×2 (07:38→17:04)
[2019-08-15] MEDS: Levothyroxine 75 MCG Tablet PO (07:39)
[2019-08-15 10:00] VITALS: PULSE 78; RESP 16; O2SAT 97
[2019-08-15 15:46] VITALS: BP 128/56; PULSE 58; RESP 18; TEMP 36.8; O2SAT 9
[2019-08-15] MEDS: Donepezil HCl 10 MG Tablet PO (17:07)
[2019-08-16] MEDS: Enoxaparin 30 MG/0.3 ML Syringe SC (07:11)
[2019-08-16] MEDS: amLODIPine 5 MG Tablet PO (07:12)
[2019-08-16] MEDS: Senna/Docusate Sodium 1 Tablet PO ×2 (07:12→18:08)
[2019-08-16] MEDS: Nystatin Powder 15gm Bottle 1 APPLIC TOPICAL ×2 (07:12→18:06)
[2019-08-16] MEDS: Menthol/Lanolin/Calamine/Znox 113 GM Tube 1 APPLIC TOPICAL ×2 (07:12→18:07)
[2019-08-16] MEDS: Carvedilol 12.5 MG Tablet PO ×2 (07:13→18:08)
[2019-08-16] MEDS: Levothyroxine 75 MCG Tablet PO (07:13)
[2019-08-16] MEDS: Multivitamin (Healthy Eyes) Capsule 1 CAP PO ×2 (07:13→18:08)
[2019-08-16 09:45] VITALS: PULSE 62; RESP 18; O2SAT 95
--- NOTE | 2019-08-16 10:02 | NURSING ---
THIS NURSE AND AID INTO CHANGE PT. PT NOT COOPERATING AND SITTING STRAIGHT UP IN BED PUSHING ARE HANDS AWAY AND SWUNG AT AID. ASKED PT TO HELP CALM PT. HELPED WITH PT. PT NOT HAPPY BUT LET US CHANGE HER. THIS NURSE EXPLAINED TO THAT THIS IS WHAT THE AIDS HAVE TO WORK WITH IN THE MORNINGS AND THAT THE PT STARTS SWINGING AT THE AIDS WHEN THEY ARE TRYING TO HELP HER. PT STATED THAT HE WILL TRY AND COME IN EARLIER IN THE MORNING TO HELP WITH HIS . REPORTED TO RADHA PEREZ
--- NOTE | 2019-08-16 15:08 | CHAPLAIN ---
Type of Pastoral Visit _x__ Initial Visit ___ Follow-up Visit ___ On-call Visit ___ General Patient Visit ___ Spiritual Assessment ___ Family Conference ___ Bereavement ___ Rapid Response ___ Code Blue ___ Other (describe below) Pastoral Care Referral From _x__ Patient ___ Family ___ Nurse ___ Physician ___ Public Service Director ___ Director Security Risk Management ___ Other (describe below) Sacrament/Intervention _x__ Active listening ___ Anointing ___ Religion ___ Bereavement ___ Communion ___ Rivka exploration ___ ___ Life review _x__ Prayer ___ Reconciliation ___ Sacrament of Sick _x__ Supportive presence ___ Wedding ___ Other (describe below) Pastoral Comments
[2019-08-16 15:24] VITALS: BP 131/73; PULSE 70; RESP 20; TEMP 36.6; O2SAT 96
[2019-08-16] MEDS: Donepezil HCl 10 MG Tablet PO (19:49)
[2019-08-17] MEDS: Carvedilol 12.5 MG Tablet PO ×2 (06:51→18:11)
[2019-08-17] MEDS: amLODIPine 5 MG Tablet PO (06:51)
[2019-08-17] MEDS: Enoxaparin 30 MG/0.3 ML Syringe SC (06:51)
[2019-08-17] MEDS: Senna/Docusate Sodium 1 Tablet PO ×2 (06:51→18:11)
[2019-08-17] MEDS: Menthol/Lanolin/Calamine/Znox 113 GM Tube 1 APPLIC TOPICAL ×2 (06:51→18:10)
[2019-08-17] MEDS: Levothyroxine 75 MCG Tablet PO (06:51)
[2019-08-17] MEDS: Nystatin Powder 15gm Bottle 1 APPLIC TOPICAL ×2 (06:52→18:09)
[2019-08-17] MEDS: Multivitamin (Healthy Eyes) Capsule 1 CAP PO ×2 (06:56→18:11)
[2019-08-17 10:00] VITALS: PULSE 60; RESP 16; O2SAT 95
--- NOTE | 2019-08-17 13:12 | CASEMGMT ---
Plan of Care meeting held today with pt and spouse present. Pt is participating with PT/OT and does better when is present during sessions. PT can ambulate up to 50 ft at [facility] and transfer from chair at [facility]. At times, if pt not present pt takes much more assist to get out of chair. Pt not able to answer many questions but looks to to answer for her. Spouse stating he did assist pt with ADLs at home. D/C plan at this time is for pt to return home with spouse who is able to provide assistance as needed. Will continue with care plan at this time. No d/c date set. TAYA Estes
[2019-08-17 16:00] VITALS: BP 114/67; PULSE 73; RESP 20; TEMP 36.6; O2SAT 96
[2019-08-17] MEDS: Donepezil HCl 10 MG Tablet PO (19:51)
[2019-08-18] MEDS: Nystatin Powder 15gm Bottle 1 APPLIC TOPICAL ×2 (07:10→17:42)
[2019-08-18] MEDS: Carvedilol 12.5 MG Tablet PO ×2 (07:11→17:42)
[2019-08-18] MEDS: Polyethylene Glycol 3350 17 GM PACKET PO (07:11)
[2019-08-18] MEDS: Senna/Docusate Sodium 1 Tablet PO ×2 (07:11→17:42)
[2019-08-18] MEDS: Enoxaparin 30 MG/0.3 ML Syringe SC (07:11)
[2019-08-18] MEDS: amLODIPine 5 MG Tablet PO (07:11)
[2019-08-18] MEDS: Multivitamin (Healthy Eyes) Capsule 1 CAP PO ×2 (07:11→17:42)
[2019-08-18] MEDS: Levothyroxine 75 MCG Tablet PO (07:11)
[2019-08-18] MEDS: Menthol/Lanolin/Calamine/Znox 113 GM Tube 1 APPLIC TOPICAL ×2 (07:12→17:42)
[2019-08-18 07:21] LABS: Absolute Lymphocyte Count 2.25 X10^3/uL (0.83-4.51); Absolute Neutrophil Count 2.9 X10^3/uL (2.0-7.7); Basophil# 0.02 X10^3/uL; Basophil% 0.3 % (0-1); Eosinophil# 0.28 X10^3/uL; Eosinophils% 4.5 % (0-5); Hematocrit 29.5 % (37-47); Hemoglobin 9.2 g/dL (12.0-15.0); Lymphocyte # 2.25 X10^3/ul (4.0); Lymphocyte % 36.4 % (19-41); Mean Corp Hgb Conc 31.2 g/dL (32-36); Mean Corpuscular Hgb 30.1 pg (27.0-32.0); Mean Corpuscular Volume 96.4 fL (81-99); Mean Platelet Vol. 10.2 fl (6.2-12.0); Monocyte# 0.68 X10^3/uL; NRBC Flagged by Analyzer 0 % (0-5); Neutrophil # 2.93 X10^3/uL (2.7-7.7); Neutrophil % 47.5 % (47-70); Platelet Count 194 K/mm3 (150-450); RBC Distribution Width CV 14.6 % (11.6-14.6); RBC Distribution Width SD 50.9 fl (35.1-43.9); Red Blood Count 3.06 M/mm3 (4.2-5.4); White Blood Count 6.2 K/mm3 (4.4-11.0)
[2019-08-18 07:38] LABS: Anion Gap 7 (5-15); BUN 38 mg/dL (7-18); BUN/Creat Ratio 18.4 RATIO (10-20); Chloride 111 mmol/L (98-107); Creatinine, Serum 2.07 mg/dL (0.55-1.02); EST Glomerular Filtration Rate 25 mL/min (>60); Est Glom Filt Rate - Afr Amer 30 mL/min (>60); Estimated Creatinine Clearance 20.02 ml/min; Glucose 74 mg/dL (74-106); Potassium 4.3 mmol/L (3.5-5.1); Sodium Level 142 mmol/L (136-145)
[2019-08-18] MEDS: 0.9% Normal Saline 1,000 ML 75 ML IV (11:31)
[2019-08-18] MEDS: 0.9% Saline Lock 10 ML Syringe IV (11:33)
[2019-08-18] MEDS: Tuberculin,Purif.prot.deriv. 50 TU/ML Vial 5 ML ID (13:24)
[2019-08-18 15:13] VITALS: BP 138/56; PULSE 61; RESP 20; TEMP 36.8; O2SAT 96
[2019-08-18] MEDS: Donepezil HCl 10 MG Tablet PO (19:47)
[2019-08-19] MEDS: 0.9% Normal Saline 1,000 ML 75 ML IV (01:05)
[2019-08-19] MEDS: Menthol/Lanolin/Calamine/Znox 113 GM Tube 1 APPLIC TOPICAL ×2 (06:39→18:08)
[2019-08-19] MEDS: Nystatin Powder 15gm Bottle 1 APPLIC TOPICAL ×2 (06:40→16:43)
--- NOTE | 2019-08-19 06:53 | NURSING ---
Addendum entered by Nona De La Torre 08/19/19 09:38: Dr Llamas updated, new order to DC IVF Original Note: Pt refused meds, pulled out IV, and refused lab draw.
[2019-08-19] MEDS: Polyethylene Glycol 3350 17 GM PACKET PO (08:39)
[2019-08-19] MEDS: Senna/Docusate Sodium 1 Tablet PO ×2 (08:39→16:44)
[2019-08-19] MEDS: Carvedilol 12.5 MG Tablet PO ×2 (08:39→16:43)
[2019-08-19] MEDS: Levothyroxine 75 MCG Tablet PO (08:40)
[2019-08-19] MEDS: Multivitamin (Healthy Eyes) Capsule 1 CAP PO ×2 (08:40→16:43)
[2019-08-19 08:57] LABS: Anion Gap 8 (5-15); BUN 31 mg/dL (7-18); BUN/Creat Ratio 16.1 RATIO (10-20); Calcium,Total 8.8 mg/dL (8.5-10.1); Chloride 111 mmol/L (98-107); Creatinine, Serum 1.92 mg/dL (0.55-1.02); EST Glomerular Filtration Rate 27 mL/min (>60); Est Glom Filt Rate - Afr Amer 33 mL/min (>60); Estimated Creatinine Clearance 21.59 ml/min; Glucose 112 mg/dL (74-106); Potassium 4.1 mmol/L (3.5-5.1); Sodium Level 143 mmol/L (136-145)
[2019-08-19 16:00] VITALS: BP 130/73; PULSE 65; RESP 18; TEMP 36.6; O2SAT 95
[2019-08-19] MEDS: Donepezil HCl 10 MG Tablet PO (19:48)
--- NOTE | 2019-08-20 01:29 | NURSING ---
0125 While being changed, patient threw her glasses at this RN. Glasses hit the nurse and then hit the floor. Glasses appear to be fine. Placed on bedside table.
[2019-08-20 04:53] VITALS: BP 127/62; PULSE 62; RESP 18; TEMP 36.7; O2SAT 95
[2019-08-20] MEDS: Menthol/Lanolin/Calamine/Znox 113 GM Tube 1 APPLIC TOPICAL ×2 (04:55→18:05)
[2019-08-20] MEDS: Carvedilol 12.5 MG Tablet PO ×2 (04:55→18:06)
[2019-08-20] MEDS: Nystatin Powder 15gm Bottle 1 APPLIC TOPICAL ×2 (04:56→18:05)
[2019-08-20] MEDS: Multivitamin (Healthy Eyes) Capsule 1 CAP PO ×2 (04:56→18:06)
[2019-08-20] MEDS: Levothyroxine 75 MCG Tablet PO (04:57)
[2019-08-20] MEDS: Senna/Docusate Sodium 1 Tablet PO ×2 (04:57→18:06)
[2019-08-20 10:50] VITALS: PULSE 59; RESP 18; O2SAT 97
[2019-08-20 15:42] VITALS: BP 131/80; PULSE 59; RESP 16; TEMP 36.4; O2SAT 99
[2019-08-20] MEDS: Donepezil HCl 10 MG Tablet PO (20:27)
--- NOTE | 2019-08-21 01:05 | NURSING ---
While changing patient, found Patient's wedding ring beside her on bed. Attempted to have patient place ring back on finger. Patient refused. Ring was placed in a specimen bag and locked in room in the medicine cabinet.
[2019-08-21 05:44] VITALS: BP 105/75; PULSE 71; RESP 18
--- NOTE | 2019-08-21 05:48 | NURSING ---
Pt agitated, refusing AM meds and treatments.
--- NOTE | 2019-08-21 07:44 | NURSING ---
Patient's wedding ring given to spouse to take home.
[2019-08-21] MEDS: Menthol/Lanolin/Calamine/Znox 113 GM Tube 1 APPLIC TOPICAL ×2 (08:12→18:32)
[2019-08-21] MEDS: Carvedilol 12.5 MG Tablet PO ×2 (08:13→18:31)
[2019-08-21] MEDS: Nystatin Powder 15gm Bottle 1 APPLIC TOPICAL ×2 (08:14→18:31)
[2019-08-21] MEDS: Multivitamin (Healthy Eyes) Capsule 1 CAP PO ×2 (08:14→18:31)
[2019-08-21] MEDS: Levothyroxine 75 MCG Tablet PO (08:15)
[2019-08-21 15:36] VITALS: BP 126/62; PULSE 61; RESP 17; TEMP 36.8; O2SAT 94
[2019-08-21] MEDS: Senna/Docusate Sodium 1 Tablet PO (18:32)
[2019-08-21 20:28] VITALS: PULSE 64; RESP 16; O2SAT 95
[2019-08-21] MEDS: Donepezil HCl 10 MG Tablet PO (20:38)
--- NOTE | 2019-08-22 03:18 | NURSING ---
This nurse was assisting MEDICAL AND SCIENTIFIC ILLUSTRATOR with changing and repositioning pt. Pt became agitated with care provided and started hitting with hand and kicking with legs. Explained that we needed to change due to been incontinent at this time. She stated, I will be leaving from here you don't need to do this. Explained to the pt the importance of us keeping her clean and dry. We had a Rn in the room helping us get the pt dry.
[2019-08-22] MEDS: Levothyroxine 75 MCG Tablet PO (08:24)
[2019-08-22] MEDS: Carvedilol 12.5 MG Tablet PO ×2 (08:24→18:25)
[2019-08-22] MEDS: Multivitamin (Healthy Eyes) Capsule 1 CAP PO (08:25)
--- NOTE | 2019-08-22 08:39 | NURSING ---
pt in bed this and ate all of breakfast. in and pt took meds whole in icecream and agreeable with care and staff at this time
[2019-08-22] MEDS: Menthol/Lanolin/Calamine/Znox 113 GM Tube 1 APPLIC TOPICAL ×2 (13:32→18:31)
[2019-08-22] MEDS: Nystatin Powder 15gm Bottle 1 APPLIC TOPICAL ×2 (13:33→18:26)
[2019-08-22 16:00] VITALS: BP 107/59; PULSE 60; RESP 16; TEMP 36.7; O2SAT 97
[2019-08-22] MEDS: Senna/Docusate Sodium 1 Tablet PO (18:26)
[2019-08-22] MEDS: Donepezil HCl 10 MG Tablet PO (22:13)
--- NOTE | 2019-08-23 03:56 | NURSING ---
Pt is very combative and aggressive with any hygiene care during this shift. Pt hits and kicks when trying to change throughout the night. Even when explaining to pt that she is incontinent and that we need to change her. She states, my will get it. This nurse explains that isn't here at the hospital right now so we will need to get her cleaned and changed at this time. Pt stills refuses care. RN made aware.
[2019-08-23] MEDS: Levothyroxine 75 MCG Tablet PO (06:39)
[2019-08-23] MEDS: Senna/Docusate Sodium 1 Tablet PO ×2 (06:39→16:58)
[2019-08-23] MEDS: Carvedilol 12.5 MG Tablet PO ×2 (06:40→16:58)
[2019-08-23] MEDS: Polyethylene Glycol 3350 17 GM PACKET PO (06:40)
[2019-08-23] MEDS: Nystatin Powder 15gm Bottle 1 APPLIC TOPICAL ×2 (06:40→16:58)
[2019-08-23] MEDS: Menthol/Lanolin/Calamine/Znox 113 GM Tube 1 APPLIC TOPICAL ×2 (06:41→17:04)
--- NOTE | 2019-08-23 13:44 | MDS.RN ---
Information for the mds was obtained from review of the clinical record, interview of resident, staff, and direct observation of resident's care.
--- NOTE | 2019-08-23 13:54 | CASEMGMT ---
Social Work Met with patient's to discuss DC plans. Inquired about pt combativeness at home prior as pt is combative with care and refuses meds during stay. states she was not bad - they were love taps and she was weak so it didn't hurt. Explained needs to be safe at home as well. Educated to disease process. stated patient's father had Dementia as well and he was aware of the progression, aggression, and pt would eventually need a LTC facility. feels pt will be better once she is home. Offered continued support and assistance. Discussed IDT set DC date 09/01 to return home. agreeable and requested [facility] PT/OT/SN - referral made. No DME needs. Provided list of private duty C agencies and grab bar installation. expressed appreciation for TCU staff. Plan: DC home with 09/01 with [facility] PT/OT. No DME needs. CALI Jimenez
[2019-08-23 15:32] VITALS: BP 131/64; PULSE 68; RESP 18; TEMP 36.6; O2SAT 98
[2019-08-23] MEDS: Multivitamin (Healthy Eyes) Capsule 1 CAP PO (16:58)
--- NOTE | 2019-08-23 20:21 | DCINST_ITS ---
- Discharge Diagnoses Current Active Problems: Current Active and Chronic Problems Debility (Acute) Generalized weakness (Acute) Urinary tract infection (Acute) Alzheimer disease (Chronic) Macular degeneration (Chronic) You will use the following diet at home:: No restrictions, Regular Your food should be the consistency of: Regular Your liquids should be the consistency of: Regular/Thin Discharge Activity: Return to Normal Activity, May Shower, Use Walker Weight Bearing Status: Weight bearing as tolerated Call your doctor if you observe: Fever of 101 or Higher, Inability to urinate, Inability to have a bowel movement, Shortness of breath, Chest pain, Uncontrolled pain Allergies/Adverse Reactions: Allergies Penicillins [PCN] Allergy (Verified 08/07/19 11:39) Unknown Medications to take at Discharge Donepezil HCl [Aricept] 10 mg PO QHS 10/14/16 Vit A/Vit C/Vit E/Zinc/Copper [Preservision Areds Softgel] 1 each PO BID 10/14/16 Aspirin [Aspirin, Baby] 81 mg PO DAILY@0800 08/07/19 Carvedilol [Coreg] 12.5 mg PO BID 08/07/19 Acetaminophen [Tylenol] 1,000 mg PO Q6H PRN PRN tablet 08/23/19 Emollient Combination No.72 [Eucerin Intensive Repair] 1 applic TOPICAL 2200,0600 lotion 08/23/19 Levothyroxine [Synthroid] 75 mcg PO DAILY@0600 #30 tab 08/23/19 Menthol/Lanolin/Calamine/Znox [Calmoseptine Ointment] 1 applic TOPICAL BID tube 08/23/19 Nystatin Powder [Mycostatin Powder] 1 applic TOPICAL BID bottle 08/23/19 The following prescriptions were given: Levothyroxine [Synthroid] 75 mcg PO DAILY@0600 #30 tab Transmission Status: Pending to [facility]/pharmacy #[id number] Primary Care Physician: Kirit Padgett MD [Primary Care Provider] - Please follow up with your Primary Care Physician in: 1 week. Test Results: Test results from this visit will be discussed in further detail at your follow- up appointment, if applicable. Proposed Discharge Date: 09/01/19
--- NOTE | 2019-08-23 20:23 | PCM.DC.SUM ---
Discharge Date and Diagnosis - Problem List Patient Problems: Active and Suspected Problems Debility (Acute) Generalized weakness (Acute) Urinary tract infection (Acute) Date of Admission: 08/10/19 Date of Discharge: 09/01/19 - Primary Discharge Diagnosis Active and Suspected Problems Debility (Acute) Generalized weakness (Acute) Urinary tract infection (Acute) - Secondary Discharge Diagnosis Chronic Problems Alzheimer disease (Chronic) Macular degeneration (Chronic) Dementia (Chronic) Hypothyroid (Chronic) Hypertension (Chronic) Hospital Course and Treatment Imaging Results: 08/10/19 15:40 Diet: Cardiac/Low Cholesterol Food consistency:: Regular Liquid Consistency:: Regular/Thin Type of Dietary Supplement:: [place] Breakfast Is pt able to select menu?: No Diet Comments: SEND YOGURT, ENSURE PUDDING OR APPLESAUCE ON EACH TRAY Operations: None, - - 10/15 left hip cephalomedullary nail Procedures: None Summary of Care Provided: The patient is a 74 year old Female with below past medical history hospitalized for weakness secondary to uncomplicated urinary tract infection, complicated by hypokalemia, admitted to TCU with debility, here for rehabilitation, strengthening, prior to disposition determination. Discharge home with , [facility] for PT/OT. Resident needs home health care due to urinary tract infection, unable to leave home due to Alzheimer Disease. Patient Problems: Active and Suspected Problems Debility (Acute) Generalized weakness (Acute) Urinary tract infection (Acute) - Physical Exam Vitals/I&O's: Vital Signs Temp Pulse Resp BP Pulse Ox 97.9 F 68 18 131/64 H 98 08/23/19 15:32 08/23/19 15:32 08/23/19 15:32 08/23/19 15:32 08/23/19 15:32 Oxygen Delivery Method Room Air Weight: 82.724 kg Body Mass Index (BMI) 30.6 Intake and Output for Last 24 Hours 08/21/19 08/22/19 08/23/19 23:59 23:59 23:59 Intake Total 1620 / 1620 960 / 960 600 / 600 Balance 1620 / 1620 960 / 960 600 / 600 Current Medications Acetaminophen (Tylenol) 1,000 mg PO Q6H PRN PRN PRN Reason: Pain Score 1-10/10 Last Admin: 08/12/19 00:45 Dose: 1,000 mg Documented by: Bisacodyl (Dulcolax) 10 mg PO DAILY PRN PRN Reason: Constipation Calamine/Phenol (Calmoseptine Ointment) 1 applic TOPICAL BID [facility]; Protocol Last Admin: 08/23/19 17:04 Dose: 1 applicatio Documented by: Carvedilol (Coreg) 12.5 mg PO BID [facility] Last Admin: 08/23/19 16:58 Dose: 12.5 mg Documented by: Donepezil HCl (Aricept) 10 mg PO QHS [facility] Last Admin: 08/22/19 22:13 Dose: 10 mg Documented by: Emollient Ointment (Eucerin Intensive Repair) 1 applic TOPICAL 2200,0600 [facility]; Protocol Last Admin: 08/23/19 06:41 Dose: 1 applicatio Documented by: Levothyroxine Sodium (Synthroid) 75 mcg PO DAILY@0600 [facility] Last Admin: 08/23/19 06:39 Dose: 75 mcg Documented by: Lorazepam (Ativan) 0.5 mg PO DAILY PRN PRN Reason: AGITATION Multivitamins/Minerals (Healthy Eyes) 1 capsule PO BID [facility] Last Admin: 08/23/19 16:58 Dose: 1 capsule Documented by: Nystatin (Mycostatin Powder) 1 applic TOPICAL BID [facility]; Protocol Last Admin: 08/23/19 16:58 Dose: 1 applicatio Documented by: Polyethylene Glycol (Miralax) 17 gm PO DAILY [facility] Last Admin: 08/23/19 06:40 Dose: 17 gm Documented by: Senna/Docusate Sodium (Senokot-S, Florecita-Colace) 1 tablet PO BID [facility] Last Admin: 08/23/19 16:58 Dose: 1 tablet Documented by: Sodium Chloride () 10 - 40 ml IV UD PRN PRN Reason: SALINE FLUSH Last Admin: 08/18/19 11:33 Dose: 10 ml Documented by: Discharge Diet: No Restrictions Discharge Activity: Return to Normal Activity, May Shower, Use Walker Weight Bearing Status: Weight bearing as tolerated Call your doctor if you observe: Fever of 101 or Higher, Inability to urinate, Inability to have a bowel movement, Shortness of breath, Chest pain, Uncontrolled pain Home Medications: Medications to take at Discharge Donepezil HCl [Aricept] 10 mg PO QHS 10/14/16 Vit A/Vit C/Vit E/Zinc/Copper [Preservision Areds Softgel] 1 each PO BID 10/14/16 Aspirin [Aspirin, Baby] 81 mg PO DAILY@0800 08/07/19 Carvedilol [Coreg] 12.5 mg PO BID 08/07/19 Acetaminophen [Tylenol] 1,000 mg PO Q6H PRN PRN tablet 08/23/19 Emollient Combination No.72 [Eucerin Intensive Repair] 1 applic TOPICAL 2200,0600 lotion 08/23/19 Levothyroxine [Synthroid] 75 mcg PO DAILY@0600 #30 tab 08/23/19 Menthol/Lanolin/Calamine/Znox [Calmoseptine Ointment] 1 applic TOPICAL BID tube 08/23/19 Nystatin Powder [Mycostatin Powder] 1 applic TOPICAL BID bottle 08/23/19 Following Prescrptions Were Given to Patient: Levothyroxine [Synthroid] 75 mcg PO DAILY@0600 #30 tab Transmission Status: Pending to [facility][id number] Primary Care Physician: Kirit Padgett MD [Primary Care Provider] - Please follow up with your Primary Care Physician in: 1 week. Disposition: Home with Home Health Minutes spent on discharge:: 35 Patient Condition:: Stable Medical Necessity - Tobacco Use Smoking Status: Never smoker Tobacco Use: Non-smoker Meaningful Use Info Meaningful Use Diagnoses (Choose all that apply): None applicable
[2019-08-23 21:40] VITALS: PULSE 60; RESP 16; O2SAT 97
[2019-08-23] MEDS: Donepezil HCl 10 MG Tablet PO (21:44)
[2019-08-23] MEDS: LORazepam 0.5 MG Tablet PO (21:44)
[2019-08-24] MEDS: Levothyroxine 75 MCG Tablet PO (09:20)
[2019-08-24] MEDS: Polyethylene Glycol 3350 17 GM PACKET PO (09:20)
[2019-08-24] MEDS: Multivitamin (Healthy Eyes) Capsule 1 CAP PO ×2 (09:21→17:42)
[2019-08-24] MEDS: Senna/Docusate Sodium 1 Tablet PO ×2 (09:21→19:36)
[2019-08-24] MEDS: Carvedilol 12.5 MG Tablet PO ×2 (09:24→19:36)
[2019-08-24] MEDS: Menthol/Lanolin/Calamine/Znox 113 GM Tube 1 APPLIC TOPICAL ×2 (09:25→19:36)
[2019-08-24] MEDS: Nystatin Powder 15gm Bottle 1 APPLIC TOPICAL ×2 (09:25→19:37)
[2019-08-24 09:37] VITALS: BP 150/59; PULSE 66
[2019-08-24 10:10] VITALS: PULSE 61; RESP 18; O2SAT 96
--- NOTE | 2019-08-24 10:28 | NURSING ---
THIS NURSE AND AID TRYING TO CHANGE PT AND PT COMBATIVE. HAD HELP US AND PT STILL RESISTING AT TIMES TO CLEAN HER UP. WAS A HELP. REPORTED TO RADHA REBOLLEDO
--- NOTE | 2019-08-24 15:02 | CHAPLAIN ---
Type of Pastoral Visit ___ Initial Visit _x__ Follow-up Visit ___ On-call Visit ___ General Patient Visit ___ Spiritual Assessment ___ Family Conference ___ Bereavement ___ Rapid Response ___ Code Blue ___ Other (describe below) Pastoral Care Referral From _x__ Patient _x__ Family ___ Nurse ___ Physician ___ [employer] Operations Consultant ___ Upper Trimmer ___ Other (describe below) Sacrament/Intervention _x__ Active listening ___ Anointing ___ Christianity ___ Bereavement ___ Communion ___ Rivka exploration ___ ___ Life review _x__ Prayer ___ Reconciliation ___ Sacrament of Sick _x__ Supportive presence ___ Wedding ___ Other (describe below) Pastoral Comments patient uses humor but does so inappropriately; spouse is with her; pt relies on spouse to answer some questions as she has difficulty responding at times; pt could however remember vacations and things that her spouse asked
[2019-08-24 16:00] VITALS: BP 127/67; PULSE 64; RESP 19; TEMP 36.7; O2SAT 97
[2019-08-24] MEDS: Donepezil HCl 10 MG Tablet PO (19:36)
[2019-08-25] MEDS: Menthol/Lanolin/Calamine/Znox 113 GM Tube 1 APPLIC TOPICAL ×2 (08:39→22:28)
[2019-08-25] MEDS: Polyethylene Glycol 3350 17 GM PACKET PO (08:49)
[2019-08-25] MEDS: Levothyroxine 75 MCG Tablet PO (08:50)
[2019-08-25] MEDS: Senna/Docusate Sodium 1 Tablet PO (08:50)
[2019-08-25] MEDS: Multivitamin (Healthy Eyes) Capsule 1 CAP PO ×2 (08:50→17:23)
[2019-08-25] MEDS: Nystatin Powder 15gm Bottle 1 APPLIC TOPICAL ×2 (08:51→22:29)
[2019-08-25 08:55] LABS: Absolute Lymphocyte Count 1.67 X10^3/uL (0.83-4.51); Absolute Neutrophil Count 6.1 X10^3/uL (2.0-7.7); Basophil# 0.03 X10^3/uL; Basophil% 0.3 % (0-1); Eosinophil# 0.28 X10^3/uL; Eosinophils% 3.2 % (0-5); Hematocrit 31.4 % (37-47); Hemoglobin 9.8 g/dL (12.0-15.0); Lymphocyte # 1.67 X10^3/ul (4.0); Lymphocyte % 18.9 % (19-41); Mean Corp Hgb Conc 31.2 g/dL (32-36); Mean Corpuscular Hgb 30.2 pg (27.0-32.0); Mean Corpuscular Volume 96.9 fL (81-99); Mean Platelet Vol. 10.2 fl (6.2-12.0); Monocyte# 0.71 X10^3/uL; NRBC Flagged by Analyzer 0 % (0-5); Neutrophil # 6.11 X10^3/uL (2.7-7.7); Neutrophil % 69.3 % (47-70); Platelet Count 196 K/mm3 (150-450); RBC Distribution Width SD 52.1 fl (35.1-43.9); Red Blood Count 3.24 M/mm3 (4.2-5.4); White Blood Count 8.8 K/mm3 (4.4-11.0)
[2019-08-25] MEDS: Carvedilol 12.5 MG Tablet PO (08:59)
[2019-08-25 09:07] LABS: Anion Gap 10 (5-15); BUN 32 mg/dL (7-18); Calcium,Total 9.1 mg/dL (8.5-10.1); Chloride 110 mmol/L (98-107); Creatinine, Serum 1.88 mg/dL (0.55-1.02); EST Glomerular Filtration Rate 28 mL/min (>60); Est Glom Filt Rate - Afr Amer 34 mL/min (>60); Estimated Creatinine Clearance 22.05 ml/min; Glucose 119 mg/dL (74-106); Potassium 4.2 mmol/L (3.5-5.1); Sodium Level 142 mmol/L (136-145)
[2019-08-25 09:09] VITALS: BP 148/91; PULSE 72
[2019-08-25 15:22] VITALS: BP 130/73; PULSE 59; RESP 18; TEMP 36.8; O2SAT 98
[2019-08-25 22:45] VITALS: PULSE 67; RESP 16; O2SAT 96
[2019-08-26] MEDS: Multivitamin (Healthy Eyes) Capsule 1 CAP PO ×2 (09:17→16:33)
[2019-08-26] MEDS: Menthol/Lanolin/Calamine/Znox 113 GM Tube 1 APPLIC TOPICAL ×2 (09:18→20:29)
[2019-08-26] MEDS: Senna/Docusate Sodium 1 Tablet PO (09:18)
[2019-08-26] MEDS: Nystatin Powder 15gm Bottle 1 APPLIC TOPICAL ×2 (09:18→20:28)
[2019-08-26] MEDS: Levothyroxine 75 MCG Tablet PO (09:18)
[2019-08-26] MEDS: Carvedilol 12.5 MG Tablet PO (09:18)
[2019-08-26 15:40] VITALS: BP 116/44; PULSE 88; RESP 18; TEMP 35.7; O2SAT 90
--- NOTE | 2019-08-26 23:55 | NURSING ---
pt refused meds tonight
[2019-08-27] MEDS: Menthol/Lanolin/Calamine/Znox 113 GM Tube 1 APPLIC TOPICAL ×2 (09:38→17:35)
[2019-08-27] MEDS: Carvedilol 12.5 MG Tablet PO ×2 (09:41→20:02)
[2019-08-27] MEDS: Multivitamin (Healthy Eyes) Capsule 1 CAP PO ×2 (09:42→17:31)
[2019-08-27] MEDS: Levothyroxine 75 MCG Tablet PO (09:42)
[2019-08-27] MEDS: Senna/Docusate Sodium 1 Tablet PO ×2 (09:42→20:02)
[2019-08-27] MEDS: Nystatin Powder 15gm Bottle 1 APPLIC TOPICAL ×2 (09:43→17:35)
[2019-08-27 10:00] VITALS: RESP 16
--- NOTE | 2019-08-27 12:54 | CON.PCM_ITS ---
Problem List (1) Injury of toenail of left foot Status: Acute (2) Pain in left toe(s) Status: Acute Reason for Consult Date of Consultation: 08/27/19 Reason for Consultation: Left toenail injury History of Present Illness: The patient is a 74 year old F with multiple comorbidities (chronic kidney disease, Alzheimer, dementia, hypo thyroidism, hypertension, and history of anemia) who resides in the transitional care unit for rehabilitation purposes was seen bedside this morning for a left foot toenail injury. Her toenail was caught on some bed sheets while she was transporting and tore her nail partially off that is now bleeding. Her pain is mild to moderate. She denies other injuries. She is able to participate mildly in the exam due to her medical status. She is with a guest today. Past Medical History Past Medical History (Chronic Problems): Chronic Problems Alzheimer disease (Chronic) Macular degeneration (Chronic) Dementia (Chronic) Hypothyroid (Chronic) Hypertension (Chronic) Allergies Penicillins [PCN] Allergy (Verified 08/07/19 11:39) Unknown Home Medications: Ambulatory Orders Medication Instructions Recorded Donepezil HCl [Aricept] 10 mg PO QHS 10/14/16 Vit A/Vit C/Vit E/Zinc/Copper 1 each PO BID 10/14/16 [Preservision Areds Softgel] Aspirin [Aspirin, Baby] 81 mg PO DAILY@0800 08/07/19 Carvedilol [Coreg] 12.5 mg PO BID 08/07/19 Acetaminophen [Tylenol] 1,000 mg PO Q6H PRN PRN tab 08/23/19 Emollient Combination No.72 1 applic TOPICAL 2200,0600 lotion 08/23/19 [Eucerin Intensive Repair] Levothyroxine [Synthroid] 75 mcg PO DAILY@0600 #30 tab 08/23/19 Menthol/Lanolin/Calamine/Znox 1 applic TOPICAL BID tube 08/23/19 [Calmoseptine Ointment] Nystatin Powder [Mycostatin Powder] 1 applic TOPICAL BID bottle 08/23/19 Surgical History: no surgical history Psychiatric History: No pertinent psych hx 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: No pertinent 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 COMPLIANCE 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 history Lives: Spouse/ Significant Other Smoking Status: Never smoker Tobacco Use: Non-smoker Alcohol: None Drugs: None - *Family History Maternal History Items: No pertinent history Review of Systems Constitutional: Denies: Chills, Fever Musculoskeletal: Reports: Foot Pain Skin: Reports: Wounds - nail injury Neurological: Denies: Numbness Patient Problems: Active and Suspected Problems Debility (Acute) Generalized weakness (Acute) Urinary tract infection (Acute) Injury of toenail of left foot (Acute) Pain in left toe(s) (Acute) - Physical Exam Vitals/I&O's: Vital Signs Temp Pulse Resp BP Pulse Ox 96.3 F L 88 16 116/44 L 90 08/26/19 15:40 08/26/19 15:40 08/27/19 10:00 08/26/19 15:40 08/26/19 15:40 Oxygen Delivery Method Room Air Weight: 83.943 kg Body Mass Index (BMI) 30.6 Intake and Output for Last 24 Hours 08/25/19 08/26/19 08/27/19 23:59 23:59 23:59 Intake Total 1080 / 1080 540 / 540 600 / 600 Balance 1080 / 1080 540 / 540 600 / 600 General: Alert, Oriented x3, Cooperative Extremities: No cyanosis, Capillary Refill Less than 3 Seconds, No Calf Tende rness - Negative Eloy and Leon signs bilateral, Diminished Peripheral Pulses - Palpable dorsalis pedis left foot and weak PT secondary to mild edema is possible. Lower extremity telangiectasias noted, Edema - Mild, - - Active range of motion of digits and ankles bilateral. Pain on palpation to fifth toe nail that is interrupted. Skin: - - Left fifth toenail was partially adhered by approximately 50% with hematogenous drainage. Upon removal of the remaining lateral nail, the nail bed appears to be intact without any necrosis or laceration. There is no ecchymosis, maceration, or distinct tissue loss. Her skin in general is atrophic and hair is scant on the foot Musculoskeletal: Muscle Wasting, Tenderness - Pain on palpation to left fifth toenail and not to the adjacent interphalangeal or metatarsophalangeal joints Neurological: Sensory exam intact to light touch and pain Psych/Mental Status: Appropriate, - - confusion consistent with medical comorbidities and baseline per guest Current Medications Acetaminophen (Tylenol) 1,000 mg PO Q6H PRN PRN PRN Reason: Pain Score 1-1010 Last Admin: 08/12/19 00:45 Dose: 1,000 mg Documented by: Bisacodyl (Dulcolax) 10 mg PO DAILY PRN PRN Reason: Constipation Calamine/Phenol (Calmoseptine Ointment) 1 applic TOPICAL BID@799,1999 [facility]; Protocol Last Admin: 08/27/19 09:38 Dose: 1 applicatio Documented by: Carvedilol (Coreg) 12.5 mg PO BID@799,1999 [facility] Last Admin: 08/27/19 09:41 Dose: 12.5 mg Documented by: Donepezil HCl (Aricept) 10 mg PO QHS [facility] Last Admin: 08/26/19 23:02 Dose: Not Given Documented by: Emollient Ointment (Eucerin Intensive Repair) 1 applic TOPICAL 799,2199 [facility]; Protocol Last Admin: 08/27/19 09:39 Dose: 1 applicatio Documented by: Levothyroxine Sodium (Synthroid) 75 mcg PO DAILY@08 [facility] Last Admin: 08/27/19 09:42 Dose: 75 mcg Documented by: Lorazepam (Ativan) 0.5 mg PO DAILY PRN PRN Reason: AGITATION Last Admin: 08/23/19 21:44 Dose: 0.5 mg Documented by: Multivitamins/Minerals (Healthy [facility]) [facility] Last Admin: 08/27/19 09:42 Dose: 1 capsule Documented by: Nystatin (Mycostatin Powder) 1 applic TOPICAL BID@799,1999 [facility]; Protocol Last Admin: 08/27/19 09:43 Dose: 1 applicatio Documented by: Polyethylene Glycol (Miralax) 17 gm PO DAILY@08 [facility] Last Admin: 08/27/19 09:42 Dose: Not Given Documented by: Senna/Docusate Sodium (Senokot-S, Florecita-Colace) 1 tablet PO BID@799,1999 [facility] Last Admin: 08/27/19 09:42 Dose: 1 tablet Documented by: Sodium Chloride () 10 - 40 ml IV UD PRN PRN Reason: SALINE FLUSH Last Admin: 08/18/19 11:33 Dose: 10 ml Documented by: Assessment/Plan All Active Problems Debility (Acute) Generalized weakness (Acute) Urinary tract infection (Acute) Injury of toenail of left foot (Acute) Pain in left toe(s) (Acute) CKD (chronic kidney disease) stage 3, GFR 30-59 ml/min (Acute) Anemia (Acute) Intertrochanteric fracture of left hip (Acute) Left toenail injury of fifth (traumatic partial avulsion) Left toe pain I reviewed her case. She appears to be medically stable at this time. It is noted she resides in a transitional care unit at this time for debility and is under a rehabilitation program. She was reassured her foot does not look infected. I do recommend completion of the left fifth toenail avulsion. Verbal consent was obtained. Alcohol preparation was performed and a clean hemostat was used to remove the remaining lateral left fifth toenail in total without difficulty. Pressure was applied to maintain hemostasis. The nail bed was inspected without any deep tissue injury, infection, or further injury. A new dressing was applied. I recommend changing the dressing daily with antibiotic ointment and a Band-Aid. To wear shoes that keep direct pressure off of this site. She is permitted to continue with rehabilitation program as scheduled. I recommend that she follows up at the [facility] within 2 weeks. Medical management per primary team is noted. Thank you for the consultation. Please do not hesitate to call if you have any questions. Tonia Dominguez DPM, FACFAS [facility] [phone]
--- NOTE | 2019-08-27 15:50 | NURSING ---
this nurse called into room by therapist, therapist stated that when she went to put pt's luis fernando hose on, she noticed that the left 5th digit toenail was nearly removed and barely attached. Dr. Llamas notified, Podiatry consulted and toenail removed. new dressing order
[2019-08-27 16:00] VITALS: BP 130/52; PULSE 66; RESP 18; TEMP 36.8; O2SAT 91
[2019-08-27] MEDS: Donepezil HCl 10 MG Tablet PO (20:02)
[2019-08-27] MEDS: LORazepam 0.5 MG Tablet PO (20:02)
--- NOTE | 2019-08-28 04:59 | NURSING ---
upon attempting am care, pt became combative and agitated. pt kicking and screaming at staff. pt attempting to hit and punch staff. smacking the arms of staff and dig nails into skin. nursing staff attempts to redirect and reorient patient- no success.
--- NOTE | 2019-08-28 07:18 | PCM.DC.POD ---
Discharge Diet: No Restrictions Discharge Activity: Return to Normal Activity, May Shower, Use Walker Weight Bearing Status: Weight bearing as tolerated Call your doctor if your incision/area has: Continuous Slow Oozing, Increased Pain/ Swelling, Increased Redness, Foul Smelling Discharge Call your doctor if you observe: Fever of 101 or Higher, Inability to urinate, Inability to have a bowel movement, Shortness of breath, Chest pain, Uncontrolled pain Cleanse incision/area with: - - change left fifth toe bandaid daily with antibiotic ointment Allergies/Adverse Reactions: Allergies Penicillins [PCN] Allergy (Verified 08/07/19 11:39) Unknown Medications to take at Discharge Donepezil HCl [Aricept] 10 mg PO QHS 10/14/16 Vit A/Vit C/Vit E/Zinc/Copper [Preservision Areds Softgel] 1 each PO BID 10/14/16 Aspirin [Aspirin, Baby] 81 mg PO DAILY@0800 08/07/19 Carvedilol [Coreg] 12.5 mg PO BID 08/07/19 Acetaminophen [Tylenol] 1,000 mg PO Q6H PRN PRN tab 08/23/19 Emollient Combination No.72 [Eucerin Intensive Repair] 1 applic TOPICAL 2200,0600 lotion 08/23/19 Levothyroxine [Synthroid] 75 mcg PO DAILY@0600 #30 tab 08/23/19 Menthol/Lanolin/Calamine/Znox [Calmoseptine Ointment] 1 applic TOPICAL BID tube 08/23/19 Nystatin Powder [Mycostatin Powder] 1 applic TOPICAL BID bottle 08/23/19 The following prescriptions were given: Levothyroxine [Synthroid] 75 mcg PO DAILY@0600 #30 tab Transmission Status: Received by [facility]/pharmacy #[id number] Primary Care Physician: Kirit Padgett MD [Primary Care Provider] - Please follow up with your Primary Care Physician in: 1 week. Test Results: Test results from this visit will be discussed in further detail at your follow-up appointment, if applicable. Please Follow Up With: Kirit Padgett MD (PCP) Please Follow Up With: [facility] When: in two weeks after discharge or call [phone] sooner if concerns. Proposed Discharge Date: 09/01/19
[2019-08-28] MEDS: Menthol/Lanolin/Calamine/Znox 113 GM Tube 1 APPLIC TOPICAL ×2 (08:45→19:22)
[2019-08-28] MEDS: Carvedilol 12.5 MG Tablet PO ×2 (08:46→19:22)
[2019-08-28] MEDS: Multivitamin (Healthy Eyes) Capsule 1 CAP PO ×2 (08:46→17:18)
[2019-08-28] MEDS: Polyethylene Glycol 3350 17 GM PACKET PO (08:46)
[2019-08-28] MEDS: Senna/Docusate Sodium 1 Tablet PO ×2 (08:47→19:21)
[2019-08-28] MEDS: Levothyroxine 75 MCG Tablet PO (08:47)
[2019-08-28 08:58] VITALS: BP 116/47; PULSE 67
[2019-08-28] MEDS: Nystatin Powder 15gm Bottle 1 APPLIC TOPICAL ×2 (09:08→19:22)
[2019-08-28 09:15] VITALS: PULSE 66; RESP 18; O2SAT 92
[2019-08-28 15:25] VITALS: BP 127/58; PULSE 59; RESP 20; TEMP 36.6; O2SAT 93
[2019-08-28] MEDS: Donepezil HCl 10 MG Tablet PO (19:21)
[2019-08-29] MEDS: Menthol/Lanolin/Calamine/Znox 113 GM Tube 1 APPLIC TOPICAL ×2 (08:13→19:45)
[2019-08-29] MEDS: Nystatin Powder 15gm Bottle 1 APPLIC TOPICAL ×2 (08:14→19:44)
[2019-08-29] MEDS: Carvedilol 12.5 MG Tablet PO ×2 (08:15→19:40)
[2019-08-29] MEDS: Multivitamin (Healthy Eyes) Capsule 1 CAP PO ×2 (08:15→17:18)
[2019-08-29] MEDS: Polyethylene Glycol 3350 17 GM PACKET PO (08:15)
[2019-08-29] MEDS: Levothyroxine 75 MCG Tablet PO (08:16)
[2019-08-29] MEDS: Senna/Docusate Sodium 1 Tablet PO ×2 (08:16→19:39)
[2019-08-29 08:45] VITALS: BP 149/57; PULSE 62
[2019-08-29 14:54] VITALS: BP 111/50; PULSE 57; RESP 19; TEMP 36.8; O2SAT 90
[2019-08-29] MEDS: Donepezil HCl 10 MG Tablet PO (19:39)
[2019-08-29 19:46] VITALS: PULSE 78; O2SAT 95
[2019-08-30] MEDS: Carvedilol 12.5 MG Tablet PO ×2 (09:10→19:53)
[2019-08-30] MEDS: Menthol/Lanolin/Calamine/Znox 113 GM Tube 1 APPLIC TOPICAL ×2 (09:11→19:52)
[2019-08-30] MEDS: Nystatin Powder 15gm Bottle 1 APPLIC TOPICAL ×2 (09:11→19:52)
[2019-08-30] MEDS: Multivitamin (Healthy Eyes) Capsule 1 CAP PO ×2 (09:11→17:28)
[2019-08-30] MEDS: Levothyroxine 75 MCG Tablet PO (09:12)
[2019-08-30 16:00] VITALS: BP 141/57; PULSE 55; RESP 19; TEMP 36.7; O2SAT 95
[2019-08-30] MEDS: Donepezil HCl 10 MG Tablet PO (19:53)
[2019-08-30 20:00] VITALS: PULSE 64; O2SAT 94
[2019-08-31] MEDS: Carvedilol 12.5 MG Tablet PO (08:49)
[2019-08-31] MEDS: Multivitamin (Healthy Eyes) Capsule 1 CAP PO ×2 (08:49→17:46)
[2019-08-31] MEDS: Nystatin Powder 15gm Bottle 1 APPLIC TOPICAL ×2 (08:49→21:19)
[2019-08-31] MEDS: Levothyroxine 75 MCG Tablet PO (08:49)
[2019-08-31] MEDS: Menthol/Lanolin/Calamine/Znox 113 GM Tube 1 APPLIC TOPICAL ×2 (08:50→21:19)
[2019-08-31 15:33] VITALS: BP 127/92; PULSE 63; RESP 19; TEMP 36.8; O2SAT 97
[2019-09-01] MEDS: Carvedilol 12.5 MG Tablet PO (09:23)
[2019-09-01] MEDS: Multivitamin (Healthy Eyes) Capsule 1 CAP PO (09:23)
[2019-09-01] MEDS: Senna/Docusate Sodium 1 Tablet PO (09:25)
[2019-09-01] MEDS: Menthol/Lanolin/Calamine/Znox 113 GM Tube 1 APPLIC TOPICAL (09:27)
[2019-09-01] MEDS: Levothyroxine 75 MCG Tablet PO (09:31)
[2019-09-01 10:00] VITALS: PULSE 71; RESP 18; O2SAT 95
== END 2019-09-01 10:30 | disposition home health service (06) | DRG 690 ==
PROVIDERS: Admitting Provider Family Medicine Geriatric Medicine; Family Provider Family Medicine; PCP Family Medicine; Visit Provider Family Medicine Geriatric Medicine
DX: N39.0 Urinary tract infection, site not specified (principal); N17.9 Acute kidney failure, unspecified; E03.9 Hypothyroidism, unspecified; F02.80 Dementia in other diseases classified elsewhere, unspecified severity, without behavioral disturbance, psychotic disturbance, mood disturbance, and anxiety; G30.9 Alzheimer's disease, unspecified; N18.3 Chronic kidney disease, stage 3 (moderate); I12.9 Hypertensive chronic kidney disease with stage 1 through stage 4 chronic kidney disease, or unspecified chronic kidney disease; H35.30 Unspecified macular degeneration; B35.4 Tinea corporis; M79.675 Pain in left toe(s); S91.205A Unspecified open wound of left lesser toe(s) with damage to nail, initial encounter; X58.XXXA Exposure to other specified factors, initial encounter; Y93.89 Activity, other specified; Y92.129 Unspecified place in nursing home as the place of occurrence of the external cause
CPT/HCPCS: 36415; 80048; 85025; 92523; 97110; 97116; 97162; 97166; 97530; 97535; 97802; J7030; A4216